=== PATIENT | female | born 1945 | race Caucasian/White ===

== ENCOUNTER 2016-08-27 19:36 | Inpatient (IN) | payer MEDICARE, OTHER ==
[~2016-08-27] VITALS: Ht 149.9 cm; Wt 82.3 kg
[~2016-08-27 19:36] MED LIST: ALBU8.5H3 INH; AMLO5TAB4 PO; ASPI81TA3 PO; ATOR10TA65 PO; CALC-277 PO; CHOL100062 PO; CYAN500T46 PO; DOCU250C58 PO; DULO60CA59 PO; ESOM40CA PO; FER325 PO; FLUT1AER IH; HYDR25TA6 PO; ISON300T72 PO; LEVO75TA5 PO; MONT10TA24 PO; PYRI100T59 PO; PYRI50TA14 PO; RIF120L PO; VALS160T20 PO; VIT1TABL46 PO
[2016-08-27] MEDS ORDERED: ACETAMINOPHEN 500 MG TAB PO STA (20:11)
[2016-08-27] MEDS ORDERED: CEFTRIAXONE 1 GM/50 ML (PMX) 50 ML IVPB STA (20:11)
[2016-08-27] MEDS ORDERED: AZITHROMYCIN 500MG/NS (PMX) 250 ML IV STA (20:11)
[2016-08-27] MEDS ORDERED: SOD CHLORIDE 0.9% 1,000 ML IV ONE (20:30)
[2016-08-27 20:33] LABS: BASOPHIL # 0.1 10^3/ul (0.0-0.1); BASOPHILS % 0.4 % (0.0-2.0); EOSINOPHILS # 0.1 10^3/ul (0.0-0.5); EOSINOPHILS % 0.7 % (0.0-7.0); HEMATOCRIT 41.9 % (37.0-47.0); HEMOGLOBIN 14.1 g/dl (12.0-16.0); LYMPHOCYTES # 0.8 10^3/ul (0.8-2.9); LYMPHOCYTES % 5.6 % (15.0-51.0); MEAN CORPUSCULAR HEMOGLOBIN 29.8 pg (29.0-33.0); MEAN CORPUSCULAR HGB CONC 33.7 g/dl (32.0-37.0); MEAN CORPUSCULAR VOLUME 88.5 fl (82.0-101.0); MEAN PLATELET VOLUME 8.7 fl (7.4-10.4); MONOCYTE # 0.7 10^3/ul (0.3-0.9); MONOCYTES % 5.1 % (0.0-11.0); NEUTROPHIL # 12.7 10^3/ul (1.6-7.5); NEUTROPHILS % 88.2 % (39.0-77.0); PLATELET COUNT 253 10^3/UL (140-440); RED BLOOD COUNT 4.74 10^6/ul (4.20-5.40); RED CELL DISTRIBUTION WIDTH 13.5 % (11.5-14.5); UNCORRECTED WBC 14.4 10^3/ul (4.8-10.8); WHITE BLOOD COUNT 14.4 10^3/ul (4.8-10.8)
--- NOTE | 2016-08-27 20:35 | RADRPT ---
PROCEDURE: XR Chest. CLINICAL INDICATION: Shortness of breath. TECHNIQUE: Single frontal view. COMPARISON: 09/30/2015. FINDINGS: The lungs are clear. The heart size is normal. There is no pleural effusion. There is no pneumothorax. IMPRESSION: 1. Normal chest radiograph. 2. No change from 09/30/2015. RPTAT: QQ .Kervin Phan MD, MD Date Time Electronically viewed and signed by .Kervin Phan MD, MD on 08/27/2016 20:35 .R/
[2016-08-27 20:36] LABS: CONDITION 1
[2016-08-27 20:41] LABS: ALBUMIN 4.2 g/dl (3.3-4.9)
[2016-08-27 20:42] LABS: POTASSIUM 4.5 mmol/L (3.5-5.1)
[2016-08-27 20:44] LABS: ALBUMIN/GLOBULIN RATIO 1.44; BILIRUBIN,INDIRECT 0.3 mg/dl (0-1.1); BILIRUBIN,TOTAL 0.3 mg/dl (0.2-1.3); CREATININE 0.83 mg/dl (0.44-1.00); TOTAL PROTEIN 7.1 g/dl (6.1-8.1)
[2016-08-27 20:45] LABS: CALCIUM 9.5 mg/dl (8.4-10.2)
[2016-08-27] MEDS ORDERED: SOD CHLORIDE 0.9% 100 ML ONE (20:52)
[2016-08-27] MEDS ORDERED: IOHEXOL 300MG/ML 150 ML BTL ONE (20:52)
[2016-08-27] MEDS ORDERED: SODIUM CHLORIDE 0.9% 1L BAG IV* STA (21:14)
[2016-08-27] MEDS ORDERED: DOCU250C58 PO (21:26)
[2016-08-27] MEDS ORDERED: LEVO75TA5 PO (21:27)
[2016-08-27] MEDS ORDERED: VALS160T20 PO (21:28)
[2016-08-27] MEDS ORDERED: ATOR10TA65 PO (21:28)
[2016-08-27] MEDS ORDERED: ESOM40CA PO (21:29)
[2016-08-27] MEDS ORDERED: ASPI-664 PO (21:29)
[2016-08-27] MEDS ORDERED: DULO60CA59 PO (21:30)
[2016-08-27] MEDS ORDERED: MONT10TA24 PO (21:30)
--- NOTE | 2016-08-27 21:30 | RADRPT ---
PROCEDURE: CT Abdomen and Pelvis with contrast. CLINICAL INDICATION: Abdomen and pelvis pain. TECHNIQUE: CT scan of the abdomen and pelvis with contrast was performed. The patient was scanned following the uncomplicated intravenous administration of 100 cc of Omnipaque-300. Coronal and sagi ttal reformatted images were obtained from the axial source images. Images were reviewed on a [employer] PACS workstation. Total exam DLP is 1153.54 mGy-cm. CTDIvol is 22.73 mGy. One or more o f the following dose reduction techniques were used: Automated exposure control, adjustment of the m A and/or kV according to patient size, use of iterative reconstruction technique. COMPARISON: CT scan of the abdomen and pelvis dated 09/16/2015. FINDINGS: The lung bases are normal. There is no pleural effusion. There is a moderate-sized hiatus hernia. Previously noted gastric band is no longer present. The liver is normal in size and attenuation. There is no focal hepatic lesion. The gallbladder is surgically absent with clips noted in the gallbladder bed. The bile ducts are no rmal. The spleen is normal in size. There is no focal splenic lesion. Both adrenals are normal with no enlargement or mass. The pancreas is unremarkable with no mass or evidence of pancreatitis. Both kidneys demonstrate normal contrast enhancement. There is no renal mass or hydronephrosis. The abdominal aorta is not dilated. There is calcification in the aorta consistent with atheroscler osis. There is no retroperitoneal lymphadenopathy or mass. There is no pelvic lymphadenopathy or mass. The bladder and distal ureters are normal. The periappendiceal region is unremarkable with no evidence of appendicitis. The bowel and mesentery are normal. There is no free fluid or free gas. There are degenerative changes of the spine. There is no fracture or lytic lesion. There is grade 1 anterolisthesis at L5-S1 and grade 1 retrolisthesis at L1-L2, unchanged. IMPRESSION: 1. Previously noted gastric band is no longer present. 2. Moderate sized hiatus hernia. 3. Status post cholecystectomy. 4. Atherosclerosis. 5. Degenerative changes of the spine. 6. Grade 1 anterolisthesis at L5-S1. 7. Grade 1 retrolisthesis at L1-L2. RPTAT: QQ .Kervin Phan MD, MD Date Time Electronically viewed and signed by .Kervin Phan MD, on 08/27/2016 21:29 .R/
[2016-08-27] MEDS ORDERED: NEBI5TAB9 PO (21:31)
[2016-08-27] MEDS ORDERED: HYD25 PO (21:31)
[2016-08-27] MEDS ORDERED: FLUT1BLS INHALATION (21:33)
[2016-08-27] MEDS ORDERED: ALBU8.5H3 INH (21:34)
[2016-08-27] MEDS ORDERED: ALBU90AE INHALATION (21:35)
[2016-08-27] MEDS ORDERED: RIFA300C3 PO (21:35)
[2016-08-27] MEDS ORDERED: ISON300T72 PO (21:36)
[2016-08-27] MEDS ORDERED: PYRI50TA14 PO (21:36)
[2016-08-27] MEDS ORDERED: FLUT1AER INHALATION (21:38)
[2016-08-27 21:42] LABS: ADD UMIC NO; URINE BILIRUBIN (Dip) NEGATIVE (NEGATIVE); URINE BLOOD (Dip) NEGATIVE (NEGATIVE); URINE COLOR LT. YELLOW (YELLOW); URINE GLUCOSE (Dip) NEGATIVE (NEGATIVE); URINE KETONES (Dip) NEGATIVE (NEGATIVE); URINE LEUKOCYTE ESTERASE (Dip) NEGATIVE (NEGATIVE); URINE NITRITE (Dip) NEGATIVE (NEGATIVE); URINE TOTAL PROTEIN (Dip) NEGATIVE (NEGATIVE); URINE UROBILINOGEN (Dip) 0.2 E.U./dL (0.1-1.0)
[2016-08-27 22:00] VITALS: TEMP 100.2
[2016-08-27] MEDS ORDERED: SOD CHLORIDE 0.9% 1,000 ML IV SCH (22:09)
--- NOTE | 2016-08-27 22:16 | ERA ---
ER Documentation Chief Complaint Date/Time DATE: 08/27/16 TIME: 22:12 Chief Complaint fever on and off antibiotics finished 2 days ago HPI This is a 70-year-old female who has had 10 days of cough and is just completed a 10 day course of antibiotics. Patient states that her cough is getting worse and she is coughing up green sputum and having fevers for 2 days up to 103. Temperature here is 101.2. She is having no vomiting or diarrhea but she is having some right lower quadrant pain today described as sharp and constant. No shortness of breath or increased work of breathing, no dysuria or hematuria ROS All systems reviewed and are negative except as per history of present illness. Medications Home Meds Reported Medications Fluticasone-Vilanterol (Breo Ellipta Inhaler) 100-25 Mcg/Actuation Aer.pow.ba, 1 PUFF INHALATION BID, #1 INHALER 08/27/16 Pyridoxine Hcl* (Pyridoxine Hcl*) 50 Mg Tablet, 50 MG PO DAILY, TAB 08/27/16 Isoniazid* (Isoniazid*) 300 Mg Tablet, 300 MG PO DAILY, TAB 08/27/16 Rifampin* (Rifampin*) 300 Mg Capsule, 300 MG PO BID, CAP 08/27/16 Albuterol Sulfate (Proair Respiclick) 90 Mcg Aer.pow.ba, 2 PUFFS INHALATION Q6 Y for PRN, #1 BOTTLE 08/27/16 Hydrochlorothiazide* (Hydrochlorothiazide*) 25 Mg Tab, 25 MG PO DAILY, #30 TAB 08/27/16 Nebivolol* (Bystolic*) 5 Mg Tab, 5 MG PO DAILY, #30 TAB 08/27/16 Montelukast Sodium* (Montelukast Sodium*) 10 Mg Tablet, 10 MG PO QHS, #30 TAB 08/27/16 Duloxetine Hcl* (Duloxetine Hcl*) 60 Mg Capsule.dr, 60 MG PO BID, #30 CAP 08/27/16 Aspirin* (Aspirin* EC) 81 Mg Tablet.dr, 81 MG PO DAILY, TAB 08/27/16 Esomeprazole Mag Trihydrate (Nexium) 40 Mg Capsule.dr, 40 MG PO DAILY, #30 CAP 08/27/16 Atorvastatin Calcium (Atorvastatin Calcium) 10 Mg Tablet, 10 MG PO QHS, #30 TAB 08/27/16 Valsartan* (Diovan*) 160 Mg Tablet, 160 MG PO DAILY, TAB 08/27/16 Levothyroxine Sodium* (Levothyroxine Sodium*) 75 Mcg Tablet, 75 MCG PO BEFORE BREAKFAST, #30 TAB 08/27/16 Docusate Sodium* (Colace*) 250 Mg Capsule, 250 MG PO DAILY, #30 CAP 08/27/16 Discontinued Reported Medications Albuterol Sulfate* (Proair HFA*) 8.5 Gm Hfa.aer.ad, 2 PUFF INH Q6H Y for WHEEZING AND SOB, #1 INHALER 08/27/16 Fluticasone/Vilanterol (Breo Ellipta 200-25 Mcg INH) 1 Each Blst.w.dev, 1 PUFF INHALATION BID, #1 INHALER 08/27/16 Cyanocobalamin* (Vitamin B12*) 500 Mcg Tab, 500 MCG PO DAILY, TAB 04/25/16 Pyridoxine Hcl* (Vitamin B-6*) 100 Mg Tablet, 100 MG PO DAILY, TAB 04/25/16 Vitamin B Complex* (Vitamin B Complex*) 1 Each Tablet, 1 TAB PO DAILY, TAB 04/25/16 Cholecalciferol* (Vitamin D3*) 1,000 Unit Tablet, 2000 UNIT PO DAILY, TAB 04/25/16 Pyridoxine Hcl* (Pyridoxine Hcl*) 50 Mg Tablet, 50 MG PO DAILY, TAB 04/25/16 Duloxetine Hcl* (Duloxetine Hcl*) 60 Mg Capsule.dr, 60 MG PO BID, #30 CAP 04/25/16 Levothyroxine Sodium* (Levothyroxine Sodium*) 75 Mcg Tablet, 75 MCG PO BEFORE BREAKFAST, #30 TAB 04/25/16 Amlodipine Besylate* (Norvasc*) 5 Mg Tablet, 5 MG PO DAILY, TAB 09/12/15 Aspirin* (Aspirin* Chew) 81 Mg Tab.chew, 81 MG PO DAILY, TAB.CHEW 09/12/15 Docusate Sodium* (Colace*) 250 Mg Capsule, 250 MG PO BID Y for COUGH, #60 CAP 09/12/15 Atorvastatin Calcium (Atorvastatin Calcium) 10 Mg Tablet, 10 MG PO QHS, #30 TAB 09/12/15 Fluticasone-Vilanterol (Breo Ellipta Inhaler) 100-25 Mcg/Actuation Aer.pow.ba, 1 PUFF IH DAILY, EA 06/17/14 Albuterol Sulfate* (Proair HFA*) 8.5 Gm Hfa.aer.ad, 1-2 PUFF INH Q4-6HOURS, INH 06/17/14 Montelukast Sodium* (Montelukast Sodium*) 10 Mg Tablet, 10 MG PO HS, TAB 06/17/14 Esomeprazole Mag Trihydrate (Nexium) 40 Mg Capsule.dr, 40 MG PO DAILY, CAP 06/17/14 Valsartan* (Diovan*) 160 Mg Tablet, 160 MG PO DAILY, TAB 06/17/14 Calcium Carbonate/Vitamin D3 (OYSTER SHELL 500 MG + VIT D TB) 1 Each Tablet, 1 EACH PO DAILY 09/04/13 Hydrochlorothiazide (Hydrochlorothiazide) 25 Mg Tablet, 25 MG PO DAILY 04/17/11 Discontinued Scripts Ferrous Sulfate* (Ferrous Sulfate*) 325 Mg Tabec, 325 MG PO TID, #60 TAB Prov:IJEOMA SENA MD 04/25/16 Rifampin* (Rifampin* Pediatric IV Syringe) 300 Mg Cap, 600 MG PO DAILY, #30 Prov:RAMANDEEP GUEVARA 10/04/15 Isoniazid* (Isoniazid*) 300 Mg Tab, 300 MG PO DAILY, #30 TAB Prov:RAMANDEEP GUEVARA 10/04/15 Allergies Allergies: Coded Allergies: No Known Allergy (Unverified , 08/27/16) PMhx/Soc History of Surgery: Yes (fixed hernia, removal of gastric lap band, cholectomy ) Anesthesia Reaction: No Hx Neurological Disorder: No Hx Respiratory Disorders: Yes (Asthma, Bronchitis) Hx Cardiac Disorders: Yes (HTN) Hx Psychiatric Problems: No Hx Alcohol Use: No Hx Substance Use: No Hx Tobacco Use: No Smoking Status: Never smoker FmHx Family History: No coronary disease Physical Exam Vitals Vital Signs Date Time Temp Pulse Resp B/P Pulse Ox O2 Delivery O2 Flow Rate FiO2 08/27/16 22:00 100.2 08/27/16 19:40 101.5 116 20 187/95 93 Physical Exam Const: Well-developed, well-nourished Head: Atraumatic, normocephalic Eyes: Normal Conjunctiva, PERRLA, EOMI, normal sclera, no nystagmus ENT: Normal External Ears, Nose and Mouth, moist mucus membranes. Neck: Full range of motion. No meningismus, no lymphadenopathy. Resp: Clear to auscultation bilaterally, no wheezing, rhonchi, rales Cardio: Regular rate and rhythm, no murmurs, S1 S2 present Abd: Soft, mild right lower quadrant tenderness, non distended. Normal bowel sounds, no guarding or rebound, no pulsitile abdominal masses or bruits Skin: No petechiae or rashes, no ecchymosis , no maculopapular rash Back: No midline or flank tenderness Ext: No cyanosis, or edema, FROM x 4, normal inspection, neurovascularly intact x 4 Neur: Awake and alert, STR 5/5 x 4, sensation intact x 4, no focal findings, cerebellum intact Psych: Normal Mood and Affect Result Diagram: 08/27/16201808/27/162018 Results 24 hrs Laboratory Tests Test 08/27/16 20:19 08/27/16 21:00 Alanine Aminotransferase (ALT/SGPT) 36IU/L Albumin 4.2g/dl Albumin/Globulin Ratio 1.44 Alkaline Phosphatase 115IU/L Anion Gap 17 Aspartate Amino Transf (AST/SGOT) 37IU/L Basophils # 0.110^3/ul Basophils % 0.4% Blood Urea Nitrogen 24mg/dl Calcium Level 9.5mg/dl Carbon Dioxide Level 27mmol/L Chloride Level 97mmol/L Creatinine 0.83mg/dl Direct Bilirubin 0.00mg/dl Eosinophils # 0.110^3/ul Eosinophils % 0.7% Globulin 2.90g/dl Glucose Level 130mg/dl Hematocrit 41.9% Hemoglobin 14.1g/dl Indirect Bilirubin 0.3mg/dl Lactic Acid Level 2.2mmol/L Lymphocytes # 0.810^3/ul Lymphocytes % 5.6% Mean Corpuscular Hemoglobin 29.8pg Mean Corpuscular Hemoglobin Concent 33.7g/dl Mean Corpuscular Volume 88.5fl Mean Platelet Volume 8.7fl Monocytes # 0.710^3/ul Monocytes % 5.1% Neutrophils # 12.710^3/ul Neutrophils % 88.2% Nucleated Red Blood Cells # 0.010^3/ul Nucleated Red Blood Cells % 0.0/100WBC Platelet Count 82878^3/UL Potassium Level 4.5mmol/L Red Blood Count 4.7410^6/ul Red Cell Distribution Width 13.5% Sodium Level 136mmol/L Total Bilirubin 0.3mg/dl Total Protein 7.1g/dl White Blood Count 14.410^3/ul Urine Bilirubin NEGATIVE Urine Clarity CLEAR Urine Color LT. YELLOW Urine Glucose NEGATIVE% Urine Hemoglobin NEGATIVE Urine Ketones NEGATIVE Urine Leukocyte Esterase NEGATIVE Urine Nitrite NEGATIVE Urine Specific [place] 1.010 Urine Total Protein NEGATIVE Urine Urobilinogen 0.2 E.U./dL Urine pH 6.0 Current Medications Medications (Trade) Dose Ordered Sig/Lois Route PRN Reason Start Time Stop Time Status Last Admin Dose Admin Ceftriaxone Sodium 50 ml @ 100 mls/hr ONCE STAT IVPB 08/27/16 20:11 08/27/16 20:40 DC 08/27/16 20:58 Azithromycin 250 ml @ 250 mls/hr ONCE STAT IV 08/27/16 20:11 08/27/16 21:10 DC 08/27/16 21:57 Sodium Chloride (NS) 1,000 ml @ 1,000 mls/hr Q1H ONCE IV 08/27/16 20:30 08/27/16 21:29 DC 08/27/16 20:57 Acetaminophen (Tylenol Tab) 1,000 mg ONCE STAT PO 08/27/16 20:11 08/27/16 20:14 DC 08/27/16 20:57 IV Flush 10 ml 10 ml STK-MED ONCE .ROUTE 08/27/16 20:52 08/27/16 20:53 DC 08/27/16 21:07 Sodium Chloride (NS) 100 ml @ ud STK-MED ONCE .ROUTE 08/27/16 20:52 08/27/16 20:53 DC 08/27/16 21:07 Iohexol (Omnipaque 300mg/ ml) 150 ml STK-MED ONCE .ROUTE 08/27/16 20:52 08/27/16 20:53 DC 08/27/16 21:07 Sodium Chloride (NS) 2,590 ml BOLUS OVER 2 HOURS STAT IV* 08/27/16 21:14 08/27/16 21:24 DC Procedures/MDM PROCEDURE: CT Abdomen and Pelvis with contrast. CLINICAL INDICATION: Abdomen and pelvis pain. TECHNIQUE: CT scan of the abdomen and pelvis with contrast was performed. The patient was scanned following the uncomplicated intravenous administration of 100 cc of Omnipaque-300. Coronal and sagittal reformatted images were obtained from the axial source images. Images were reviewed on a high-resolution PACS workstation. Total exam DLP is 1153.54 mGy-cm. CTDIvol is 22.73 mGy. One or more of the following dose reduction techniques were used: Automated exposure control, adjustment of the mA and/or kV according to patient size, use of iterative reconstruction technique. COMPARISON: CT scan of the abdomen and pelvis dated 09/16/2015. FINDINGS: The lung bases are normal. There is no pleural effusion. There is a moderate- sized hiatus hernia. Previously noted gastric band is no longer present. The liver is normal in size and attenuation. There is no focal hepatic lesion. The gallbladder is surgically absent with clips noted in the gallbladder bed. The bile ducts are normal. The spleen is normal in size. There is no focal splenic lesion. Both adrenals are normal with no enlargement or mass. The pancreas is unremarkable with no mass or evidence of pancreatitis. Both kidneys demonstrate normal contrast enhancement. There is no renal mass or hydronephrosis. The abdominal aorta is not dilated. There is calcification in the aorta consistent with atherosclerosis. There is no retroperitoneal lymphadenopathy or mass. There is no pelvic lymphadenopathy or mass. The bladder and distal ureters are normal. The periappendiceal region is unremarkable with no evidence of appendicitis. The bowel and mesentery are normal. There is no free fluid or free gas. There are degenerative changes of the spine. There is no fracture or lytic lesion. There is grade 1 anterolisthesis at L5-S1 and grade 1 retrolisthesis at L1-L2, unchanged. IMPRESSION: 1. Previously noted gastric band is no longer present. 2. Moderate sized hiatus hernia. 3. Status post cholecystectomy. 4. Atherosclerosis. 5. Degenerative changes of the spine. 6. Grade 1 anterolisthesis at L5-S1. 7. Grade 1 retrolisthesis at L1-L2. RPTAT: QQ .Kervin Phan MD, Date Time Electronically viewed and signed by .Kervin Phan MD, on 08/27/2016 21:29 .R/ CC: JAGRUTI DENNIS DO PROCEDURE: XR Chest. CLINICAL INDICATION: Shortness of breath. TECHNIQUE: Single frontal view. COMPARISON: 09/30/2015. FINDINGS: The lungs are clear. The heart size is normal. There is no pleural effusion. There is no pneumothorax. IMPRESSION: 1. Normal chest radiograph. 2. No change from 09/30/2015. RPTAT: QQ .Kervin Phan MD, MD Date Time Electronically viewed and signed by .Kervin Phan MD, MD on 08/27/2016 20:35 .R/ CC: JAGRUTI DENNIS DO Patient has a slightly elevated lactate at 2.2 she was given antibiotics and IV fluid resuscitation per sepsis protocol, I however do not feel she is grossly septic Patient's infectious symptoms have not stabilized and the patient is at risk of rapid decompensation. The patient will be admitted for careful hydration, antibiotic therapy, and infectious source control. Severe Sepsis Assessment: Infectious Source: Bronchitis End organ damage indicated by: [Lactate > 2.0 mmol/L Hypotension( SBP < 90 or >40 mmHG drop or MAP < 65) Acute Resp Failure (sat < 92% w/o oxygen) Waiter/Waitress Head > 2.0 INR > 1.5 Plt < 100 Bili > 2] Severe Sepsis Managment: Blood Cultures X 2 before broad spectrum antibiotics initiated within 3 hours of recognition. 30 ml/kg NS bolus Completed Initial Lactate: [2.2 Repeat Lactate [pending] Critical Care: Time: [30 minutes Treatments/Evaluations: Emergent fluid management, while maintaining close respiratory support. Immediate broad spectrum antibiotic therapy. Simultaneous assessment for possible sources in order to direct therapy. Consideration for invasive and chemical support to prevent respiratory or cardiac collapse. Departure Diagnosis: Primary Impression: Sepsis Qualified Code: A41.9 - Sepsis, due to unspecified organism Additional Impression: Bronchitis Condition: Stable JAGRUTI DENNIS DO Aug 27, 2016 22:16
[2016-08-27] MEDS ORDERED: ONDANSETRON 4 MG INJ IV PRN (22:30)
[2016-08-27] MEDS ORDERED: ACETAMINOPHEN 325 MG TAB PO PRN (22:30)
[2016-08-27 23:30] VITALS: Ht 149.9 cm; Wt 82.3 kg
[2016-08-27 23:45] VITALS: BP 161/83; PULSE 97; RESP 18
[2016-08-28] MEDS: DULOXETINE 30 MG CAP DR PO SCH ×3 (00:30→21:12)
[2016-08-28] MEDS ORDERED: hydrALAzine 20 MG INJ IV PRN (00:30)
[2016-08-28] MEDS ORDERED: NON-FORMULARY/PATIENT OWN MED (Albuterol Sulfate (Proair Respiclick) 2 PUFFS) INHALATION PRN (00:30)
[2016-08-28] MEDS: VALSARTAN 160 MG TAB PO SCH ×2 (01:00→08:51)
[2016-08-28] MEDS ORDERED: ALBUTEROL HFA 8 GM INHALER INH PRN (01:00)
[2016-08-28] MEDS: NEBIVOLOL 5 MG TAB PO SCH ×2 (01:00→08:50)
[2016-08-28 01:26] VITALS: BP 152/83; PULSE 83; RESP 20
[2016-08-28 05:21] LABS: BASOPHILS % 0.2 % (0.0-2.0); EOSINOPHILS # 0.1 10^3/ul (0.0-0.5); EOSINOPHILS % 0.5 % (0.0-7.0); HEMATOCRIT 38.4 % (37.0-47.0); LYMPHOCYTES # 0.8 10^3/ul (0.8-2.9); MEAN CORPUSCULAR HGB CONC 33.7 g/dl (32.0-37.0); MEAN PLATELET VOLUME 8.6 fl (7.4-10.4); MONOCYTE # 1.1 10^3/ul (0.3-0.9); MONOCYTES % 7.7 % (0.0-11.0); NEUTROPHIL # 11.7 10^3/ul (1.6-7.5); NEUTROPHILS % 85.6 % (39.0-77.0); PLATELET COUNT 223 10^3/UL (140-440); RED BLOOD COUNT 4.32 10^6/ul (4.20-5.40); RED CELL DISTRIBUTION WIDTH 13.8 % (11.5-14.5); UNCORRECTED WBC 13.7 10^3/ul (4.8-10.8); WHITE BLOOD COUNT 13.7 10^3/ul (4.8-10.8)
[2016-08-28 05:28] LABS: CONDITION 1
[2016-08-28 05:35] LABS: POTASSIUM 3.9 mmol/L (3.5-5.1)
[2016-08-28 05:37] LABS: CREATININE 0.76 mg/dl (0.44-1.00)
[2016-08-28 05:38] LABS: CALCIUM 8.5 mg/dl (8.4-10.2)
[2016-08-28 05:40] LABS: MAGNESIUM 1.5 mg/dl (1.7-2.5)
[2016-08-28] MEDS ORDERED: MAGNESIUM SULFATE 4 GM/100 ML 100 ML IVPB ONE (06:00)
[2016-08-28] MEDS ORDERED: LEVOTHYROXINE 75 MCG TAB PO SCH (06:00)
[2016-08-28] MEDS: PANTOPRAZOLE (EC) 40 MG TAB PO SCH (07:07)
[2016-08-28 08:15] VITALS: BP 187/89; PULSE 82; RESP 16
[2016-08-28] MEDS: METHYLPREDNISOLONE 125 MG INJ IV SCH ×3 (08:50→21:12)
[2016-08-28] MEDS: ASPIRIN (EC) 81 MG TAB PO SCH (08:51)
[2016-08-28] MEDS: HYDROCHLOROTHIAZIDE 25 MG TAB PO SCH (08:51)
[2016-08-28] MEDS: RIFAMPIN 300 MG CAP PO SCH ×2 (08:51→21:13)
[2016-08-28] MEDS: DOCUSATE SODIUM 250 MG CAP PO SCH (08:51)
[2016-08-28] MEDS: ISONIAZID 300 MG TAB PO SCH (08:51)
[2016-08-28] MEDS: PYRIDOXINE 50 MG TAB PO SCH (08:51)
[2016-08-28] MEDS ORDERED: NON-FORMULARY/PATIENT OWN MED (Esomeprazole Mag Trihydrate (Nexium) 40 MG) PO SCH (09:00)
--- NOTE | 2016-08-28 09:43 | HP ---
DATE OF ADMISSION: 08/28/2016 CHIEF COMPLAINT: Shortness of breath and cough. HISTORY OF PRESENT ILLNESS: The patient is a 70-year-old female with a history of asthma, hypertens ion, dyslipidemia, obesity and Mycobacterium infection of the liver. The patient presents with shor tness of breath and persistent cough for the past several days now. She has no other complaints. T he patient was last hospitalized here in September 2015 for issues related to a slipped lap band. At that time, had undergone lap band removal and hernia repair by Dr. Thompson. At that time, patient did have a liver biopsy and biopsy did come back positive for melanoma with isolated AFB, compatible with mycobacterial infection. The patient has no other complaints at this time. PAST MEDICAL HISTORY: Asthma, hypothyroidism, dyslipidemia, hypertension, obesity, history of lapar oscopic band removal and mycobacterial infection of the liver on medicine, knee surgery and hernia r epair. Of note, the patient had hernia repair at the same time of the liver biopsy. HOME MEDICATIONS: 1. Albuterol. 2. Aspirin. 3. Atorvastatin. 4. Colace. 5. Cymbalta. 6. Nexium. 7. Steroid inhaler. 8. Hydrochlorothiazide. 9. Isoniazid. 10. Montelukast. 11. Bystolic. 12. Pyridoxine. 13. Rifampin. 14. Will start on Diovan as well as Synthroid ALLERGIES: NO KNOWN DRUG ALLERGIES. FAMILY HISTORY: Mother with cancer. SOCIAL HISTORY: Denies alcohol, tobacco, or drug abuse. REVIEW OF SYSTEMS: A 12-point review of systems negative except that discussed in HPI. PHYSICAL EXAMINATION: VITAL SIGNS: Temp current is 99.3, T-max 101.5, pulse 83, respiratory rate is 20, blood pressure 15 2/83, saturation 94% on room air. GENERAL: No acute distress, alert and oriented. HEENT: Normocephalic, atraumatic. Pupils equal, round, and reactive to light. LUNGS: Clear to auscultation. CARDIOVASCULAR: Regular rate and rhythm. ABDOMEN: Nondistended, nontender, soft. EXTREMITIES: No clubbing, cyanosis, or edema. LABORATORIES: White count 16.7, hemoglobin 16.0. Chemistry within normal limits except for magnesi um 1.5. DIAGNOSTICS: Chest x-ray shows normal chest. No change from 09/30/2015. Abdominal pelvis CT shows a previously noted gastric banding is no longer present. Moderate size hiatus hernia, status post cholecystectomy, atherosclerosis, degenerative changes of the spine. ASSESSMENT AND PLAN: 1. Asthma exacerbation and patient has multiple episodes of asthma exacerbations according to lonny ortez. The patient did have slightly elevated lactic acid at 2.2 on admission as well as a fever and l eukocytosis. We will treat with antibiotics. We will give oxygen via nasal cannula, pulse continue patient's home breathing treatments. 2. Sepsis secondary to acute upper respiratory infection. The patient does meet sepsis criteria wi th leukocytosis, fever and tachycardia. Once again, we will treat with antibiotics. 3. History of mycobacterial infection of the liver. Continue patient's home antibiotics. 4. Hypertension. Continue home Bystolic and Diovan. 5. Depression. Continue home Cymbalta. 6. Prophylaxis. SCDs. Dictated By: LUDIVINA PANDYA MD BS/NTS Conf#: [id number] DID#: [id number]
[2016-08-28 10:00] VITALS: BP 165/77; PULSE 80
[2016-08-28] MEDS ORDERED: ALBUTEROL/IPRATROPIUM (NEB) 3 ML AMP HHN PRN (13:00)
[2016-08-28] MEDS: ALBUTEROL/IPRATROPIUM (NEB) 3 ML AMP HHN SCH ×3 (13:40→20:12)
[2016-08-28] MEDS: GUAIFENESIN 20 MG/ML 5ML CUP PO PRN ×2 (13:55→21:23)
[2016-08-28] MEDS: AMLODIPINE 5 MG TAB PO SCH ×2 (13:55→21:15)
[2016-08-28 14:00] VITALS: BP 148/77; PULSE 77
[2016-08-28] MEDS ORDERED: MAGNESIUM SULFATE 2 GM/50 ML 50 ML IVPB ONE (14:00)
[2016-08-28 20:31] VITALS: BP 110/63; RESP 20
[2016-08-28] MEDS: AZITHROMYCIN 500MG/NS (PMX) 250 ML IVPB SCH (21:12)
[2016-08-28] MEDS: MONTELUKAST 10 MG TAB PO SCH (21:13)
[2016-08-28] MEDS: ATORVASTATIN 10 MG TAB PO SCH (21:13)
[2016-08-28] MEDS: CEFTRIAXONE 1 GM/50 ML (PMX) 50 ML IVPB SCH (21:34)
[2016-08-29] MEDS: ALBUTEROL/IPRATROPIUM (NEB) 3 ML AMP HHN SCH ×6 (00:52→20:42)
[2016-08-29 05:47] LABS: HEMATOCRIT 37.6 % (37.0-47.0); HEMOGLOBIN 12.6 g/dl (12.0-16.0); LYMPHOCYTES # 0.7 10^3/ul (0.8-2.9); LYMPHOCYTES % 6.8 % (15.0-51.0); MEAN CORPUSCULAR HGB CONC 33.5 g/dl (32.0-37.0); MEAN CORPUSCULAR VOLUME 89.7 fl (82.0-101.0); MEAN PLATELET VOLUME 8.9 fl (7.4-10.4); MONOCYTE # 0.4 10^3/ul (0.3-0.9); MONOCYTES % 3.6 % (0.0-11.0); NEUTROPHIL # 9.5 10^3/ul (1.6-7.5); NEUTROPHILS % 89.6 % (39.0-77.0); PLATELET COUNT 246 10^3/UL (140-440); POTASSIUM 4.2 mmol/L (3.5-5.1); RED BLOOD COUNT 4.19 10^6/ul (4.20-5.40); RED CELL DISTRIBUTION WIDTH 13.9 % (11.5-14.5); UNCORRECTED WBC 10.6 10^3/ul (4.8-10.8); WHITE BLOOD COUNT 10.6 10^3/ul (4.8-10.8)
[2016-08-29 05:49] LABS: CREATININE 0.72 mg/dl (0.44-1.00)
[2016-08-29 06:11] LABS: CONDITION 1
[2016-08-29] MEDS: PANTOPRAZOLE (EC) 40 MG TAB PO SCH (06:19)
[2016-08-29] MEDS: METHYLPREDNISOLONE 125 MG INJ IV SCH ×3 (06:19→20:24)
[2016-08-29] MEDS: GUAIFENESIN 20 MG/ML 5ML CUP PO PRN ×2 (06:21→14:46)
[2016-08-29] MEDS: LEVOTHYROXINE 75 MCG TAB PO SCH (06:21)
[2016-08-29 07:49] VITALS: BP 140/65; RESP 18
[2016-08-29] MEDS: NEBIVOLOL 5 MG TAB PO SCH (08:36)
[2016-08-29] MEDS: DOCUSATE SODIUM 250 MG CAP PO SCH (08:36)
[2016-08-29] MEDS: DULOXETINE 30 MG CAP DR PO SCH ×2 (08:36→20:25)
[2016-08-29] MEDS: RIFAMPIN 300 MG CAP PO SCH ×2 (08:37→20:25)
[2016-08-29] MEDS: HYDROCHLOROTHIAZIDE 25 MG TAB PO SCH (08:37)
[2016-08-29] MEDS: ISONIAZID 300 MG TAB PO SCH (08:37)
[2016-08-29] MEDS: PYRIDOXINE 50 MG TAB PO SCH (08:37)
[2016-08-29] MEDS: ASPIRIN (EC) 81 MG TAB PO SCH (08:37)
[2016-08-29] MEDS: VALSARTAN 160 MG TAB PO SCH (08:37)
[2016-08-29] MEDS: AMLODIPINE 5 MG TAB PO SCH ×2 (10:42→20:25)
[2016-08-29 13:27] VITALS: BP 137/82; PULSE 69; RESP 16
[2016-08-29] MEDS ORDERED: FLUT1AER INHALATION (14:12)
[2016-08-29] MEDS ORDERED: ALBU90AE INHALATION (14:12)
[2016-08-29] MEDS ORDERED: AZIT500T2 PO (14:12)
[2016-08-29] MEDS ORDERED: PRED10TA PO (14:12)
[2016-08-29] MEDS ORDERED: AMLO-145 PO (14:12)
--- NOTE | 2016-08-29 14:16 | PDOCDIS ---
Discharge Instructions DIAGNOSIS Discharge Diagnosis: 1. Asthma exacerbation 2. Sepsis suspect secondary to bronchitis CONDITION Patient Condition: Stable HOME CARE INSTRUCTIONS: Diet Instructions: Low Fat /Cholesterol FOLLOW UP/APPOINTMENTS Appointments 1. Follow up with your primary care provider in one week OTHER ORDERS: Other Orders: 1. Call your primary care provider if you have worsening shortness of breath DAVDI KHAN Aug 29, 2016 14:16
[2016-08-29] MEDS: SALMETEROL/FLUTICASONE 250/50 INHA INH SCH ×2 (14:46→20:26)
[2016-08-29] MEDS ORDERED: AL HYDROX/MG HYDROX/SIMETH 30 ML CUP PO PRN (15:00)
--- NOTE | 2016-08-29 15:46 | PN ---
Date/Time of Note Date/Time of Note DATE: 08/29/16 TIME: 15:43 Assessment/Plan VTE Prophylaxis VTE Prophylaxis Intervention: SCD's Lines/Catheters [facility] Urinary Cath still in place: No Assessment/Plan Chief Complaint/Hosp Course Assessment and plan 1. Asthma exacerbation. Continue on steroid treatment. Continue bronchodilators. Titrate off O2 as tolerated. 2. Sepsis secondary to suspect bronchitis. Continue antibiotic for now. We'll provide with antitussives for cough 3. History of mycobacterial infection of the liver. We'll continue patient on her Rifampin and Isoniazid. 4. Essential hypertension. Continue on antihypertensives and adjust as needed 5. History of major depression. Continue on Cymbalta DVT prophylaxis: SCDs and Disposition and plan: Continue on bronchodilators and steroid treatment. Monitor for clinical improvement of respiratory status. Discharge when medically stable Discussed health care with Dr. [place] Problems: Subjective 24 Hr Interval Summary Free Text/Dictation Still with reports of shortness of breath and cough Exam/Review of Systems Vital Signs Vitals Vital Signs Date Time Temp Pulse Resp B/P Pulse Ox O2 Delivery O2 Flow Rate FiO2 08/29/16 14:00 72 19 95 Nasal Cannula 2.0 08/29/16 13:27 98.9 137/82 Intake and Output 08/28/16 08/28/16 08/29/16 15:00 23:00 07:00 Intake Total 100 ml 840 ml 860 ml Balance 100 ml 840 ml 860 ml Exam General: No acute signs or symptoms of distress Eyes: pupils equal round, Anicteric sclera Neck: Supple nontender, no JVD Cardiac: S1, S2 auscultated, regular rhythm and rate Pulmonary: coarse lung sounds with some wheezing bilaterally GI: Abdomen soft nontender nondistended, bowel sounds active Extremities: No edema bilateral lower extremities Skin: Clean dry and intact Neurologic: Alert to person place and time and situation Results Result Diagram: 08/29/16 0444 08/29/164 Results 24 hrs Laboratory Tests Test 08/29/16 04:44 Anion Gap 12 Basophils # 0.0 Basophils % 0.0 Blood Urea Nitrogen 24 H Calcium Level 8.0 L Carbon Dioxide Level 30 Chloride Level 102 Creatinine 0.72 Eosinophils # 0.0 Eosinophils % 0.0 Glucose Level 146 Hematocrit 37.6 Hemoglobin 12.6 Lymphocytes # 0.7 L Lymphocytes % 6.8 L Mean Corpuscular Hemoglobin 30.0 Mean Corpuscular Hemoglobin Concent 33.5 Mean Corpuscular Volume 89.7 Mean Platelet Volume 8.9 Monocytes # 0.4 Monocytes % 3.6 Neutrophils # 9.5 H Neutrophils % 89.6 H Nucleated Red Blood Cells # 0.0 Nucleated Red Blood Cells % 0.0 Platelet Count 246 Potassium Level 4.2 Red Blood Count 4.19 L Red Cell Distribution Width 13.9 Sodium Level 140 White Blood Count 10.6 # Medications Medications Current Medications Aspirin (Halfprin) 81 mg DAILY PO Last administered on 08/29/16 08:37; Admin Dose 81 MG; Start 08/28/16 at 09:00 Atorvastatin Calcium (Lipitor) 10 mg QHS PO Last administered on 08/28/16 21:13 ; Admin Dose 10 MG; Start 08/28/16 at 21:00 Docusate Sodium (Colace) 250 mg DAILY PO Last administered on 08/29/16 08:36; Admin Dose 250 MG; Start 08/28/16 at 09:00 Duloxetine HCl (Cymbalta) 60 mg BID PO Last administered on 08/29/16 08:36; Admin Dose 60 MG; Start 08/28/16 at 00:30 Hydrochlorothiazide (Hydrochlorothiazide) 25 mg DAILY PO Last administered on 08:37; Admin Dose 25 MG; Start 08/28/16 at 09:00 Isoniazid (Isoniazid) 300 mg DAILY PO Last administered on 08/29/16 08:37; Admin Dose 300 MG; Start 08/28/16 at 09:00 Montelukast Sodium (Singulair) 10 mg QHS PO Last administered on 08/28/16 21:13 ; Admin Dose 10 MG; Start 08/28/16 at 21:00 Miscellaneous Medication (Bystolic) 5 mg DAILY PO Last administered on 08:36; Admin Dose 5 MG; Start 08/28/16 at 01:00 Pyridoxine HCl (Vitamin B6) 50 mg DAILY PO Last administered on 08/29/16 08:37 ; Admin Dose 50 MG; Start 08/28/16 at 09:00 Rifampin (Rifampin) 300 mg BID PO Last administered on 08/29/16 08:37; Admin Dose 300 MG; Start 08/28/16 at 09:00 Valsartan (Diovan) 160 mg DAILY PO Last administered on 08/29/16 08:37; Admin Dose 160 MG; Start 08/28/16 at 01:00 Pantoprazole 40 mg 40 mg DAILY@06 PO Last administered on 08/29/16 06:19; Admin Dose 40 MG; Start 08/28/16 at 06:00 Ceftriaxone Sodium 50 ml @ 100 mls/hr Q24H IVPB Last administered on 08/28/16 21:34; Admin Dose 100 MLS/HR; Start 08/28/16 at 21:00 Azithromycin (Zithromax 500mg/ NS (Pmx)) 250 ml @ 250 mls/hr Q24H IVPB Last administered on 08/28/16 21:12; Admin Dose 250 MLS/HR; Start 08/28/16 at 20:00 Hydralazine HCl (Apresoline) 10 mg Q4H PRN IV ELEVATED SYSTOLIC BP; Start at 00:30 Salmeterol Xinafoate/ Fluticasone (Advair 250/50 Diskus) 1 inh BID INH Last administered on 08/29/16 14:46; Admin Dose 1 INH; Start 08/29/16 at 14:30 Methylprednisolone Sodium Succinate (Solu-Medrol) 60 mg Q8 IV Last administered on 08/29/16 14:46; Admin Dose 60 MG; Start 08/28/16 at 07:30 Amlodipine Besylate (Norvasc) 5 mg BID PO Last administered on 08/29/16 10:42; Admin Dose 5 MG; Start 08/28/16 at 12:30 Guaifenesin (Robitussin Liquid Cup) 200 mg Q4H PRN PO cough Last administered on 08/29/16 14:46; Admin Dose 200 MG; Start 08/28/16 at 13:00 Al Hydrox/Mg Hydrox/Simethicone (Mag-Al Plus) 30 ml Q4H PRN PO GASTROINTESTINAL UPSET; Start 08/29/16 at 15:00 DAVID KHAN Aug 29, 2016 15:46
[2016-08-29 19:52] VITALS: BP 141/77; RESP 18
[2016-08-29] MEDS: AZITHROMYCIN 500MG/NS (PMX) 250 ML IVPB SCH (20:24)
[2016-08-29] MEDS: ATORVASTATIN 10 MG TAB PO SCH (20:25)
[2016-08-29] MEDS: MONTELUKAST 10 MG TAB PO SCH (20:25)
[2016-08-29] MEDS: CEFTRIAXONE 1 GM/50 ML (PMX) 50 ML IVPB SCH (22:38)
[2016-08-30] MEDS: ALBUTEROL/IPRATROPIUM (NEB) 3 ML AMP HHN SCH ×4 (02:32→13:00)
[2016-08-30] MEDS: GUAIFENESIN 20 MG/ML 5ML CUP PO PRN ×2 (02:55→11:03)
[2016-08-30 05:48] LABS: BASOPHILS % 0.1 % (0.0-2.0); HEMATOCRIT 38.6 % (37.0-47.0); HEMOGLOBIN 12.8 g/dl (12.0-16.0); LYMPHOCYTES # 1.6 10^3/ul (0.8-2.9); LYMPHOCYTES % 14.3 % (15.0-51.0); MEAN CORPUSCULAR HEMOGLOBIN 29.9 pg (29.0-33.0); MEAN CORPUSCULAR HGB CONC 33.1 g/dl (32.0-37.0); MEAN CORPUSCULAR VOLUME 90.2 fl (82.0-101.0); MEAN PLATELET VOLUME 8.9 fl (7.4-10.4); MONOCYTE # 0.8 10^3/ul (0.3-0.9); MONOCYTES % 7.1 % (0.0-11.0); NEUTROPHIL # 8.7 10^3/ul (1.6-7.5); NEUTROPHILS % 78.5 % (39.0-77.0); PLATELET COUNT 270 10^3/UL (140-440); RED BLOOD COUNT 4.27 10^6/ul (4.20-5.40); RED CELL DISTRIBUTION WIDTH 13.6 % (11.5-14.5); UNCORRECTED WBC 11.1 10^3/ul (4.8-10.8); WHITE BLOOD COUNT 11.1 10^3/ul (4.8-10.8)
[2016-08-30] MEDS: PANTOPRAZOLE (EC) 40 MG TAB PO SCH (05:56)
[2016-08-30] MEDS: METHYLPREDNISOLONE 125 MG INJ IV SCH (05:56)
[2016-08-30] MEDS: LEVOTHYROXINE 75 MCG TAB PO SCH (05:56)
[2016-08-30 05:57] LABS: CONDITION 1
[2016-08-30 06:04] LABS: POTASSIUM 4.1 mmol/L (3.5-5.1)
[2016-08-30 06:06] LABS: CREATININE 0.66 mg/dl (0.44-1.00)
[2016-08-30 06:07] LABS: CALCIUM 8.5 mg/dl (8.4-10.2)
[2016-08-30 07:34] VITALS: BP 143/67; RESP 20
[2016-08-30 08:13] VITALS: PULSE 73
[2016-08-30] MEDS: DULOXETINE 30 MG CAP DR PO SCH (08:18)
[2016-08-30] MEDS: DOCUSATE SODIUM 250 MG CAP PO SCH (08:18)
[2016-08-30] MEDS: AMLODIPINE 5 MG TAB PO SCH (08:19)
[2016-08-30] MEDS: RIFAMPIN 300 MG CAP PO SCH (08:19)
[2016-08-30] MEDS: ISONIAZID 300 MG TAB PO SCH (08:19)
[2016-08-30] MEDS: NEBIVOLOL 5 MG TAB PO SCH (08:19)
[2016-08-30] MEDS: PYRIDOXINE 50 MG TAB PO SCH (08:19)
[2016-08-30] MEDS: ASPIRIN (EC) 81 MG TAB PO SCH (08:19)
[2016-08-30] MEDS: HYDROCHLOROTHIAZIDE 25 MG TAB PO SCH (10:58)
[2016-08-30] MEDS: VALSARTAN 160 MG TAB PO SCH (10:58)
[2016-08-30] MEDS: SALMETEROL/FLUTICASONE 250/50 INHA INH SCH (10:59)
[2016-08-30 11:00] VITALS: BP 143/85; PULSE 66
[2016-08-30] MEDS ORDERED: CIPR500T4 PO (11:24)
--- NOTE | 2016-08-30 17:37 | DS ---
DATE OF ADMISSION: 08/28/2016 DATE OF DISCHARGE: 08/30/2016 DISCHARGE DIAGNOSES: 1. Asthma with exacerbation. 2. Sepsis secondary to suspect bronchitis. 3. History of mycobacterial infection of the liver. 4. Essential hypertension. 5. History of major depression. HOSPITAL COURSE: This is a 70-year-old female with history of asthma, hypertension, dyslipidemia an d obesity as well as Mycobacterium infection of the liver who came to [facility] d ue to reports of shortness of breath and cough as well as some wheezing. Patient of note was hospit alized in September 2015 secondary to slipped lap band for which she did have removal and hernia repa ir by Dr. Thompson. At that time, she had a liver biopsy that did come back positive for melanoma an d isolated AFB compatible with mycobacterial infection. Of note, the patient was optimized and cont inued on her antibiotic regimen for that mycobacterial infection for her liver. For her shortness o f breath; however, was noted with some abdominal wheezing. Her chest x-ray showed normal chest radi ograph with no active consolidation. The patient was placed on bronchodilators as well as oxygen young pplement for which we did titrate it down. She was likely with acute bronchitis and we did continue her on azithromycin for this issue. Patient did have further urinalysis with Pseudomonas aeruginos a growing in it and we did provide her with appropriate antibiotic. During her course of stay, she did improve. Her wheezing did start to subside and she did respond well to steroid therapy. We did titrate her off the oxygen. She was otherwise optimized medically. We did continue her on her ant ihypertensives for hypertension and Cymbalta for her depression. During her course of stay, she did improve. She was instructed to follow up with primary care provider within a week. Plan of care w as discussed with patient and family and the patient and family did verbalize understanding. On the day of discharge, the patient was in stable condition. Discharge physical exam and vital signs are stable. CONDITION: Stable. DISCHARGE PLAN 1. Diet: Low fat, low cholesterol. 2. Patient to follow up with her primary care provider within 1 week. 3. Patient to call primary care provider if she has worsening shortness of breath. DISCHARGE MEDICATIONS 1. Amlodipine 5 mg p.o. b.i.d. 2. Zithromax tripack. 3. Cipro 500 mg p.o. b.i.d. 4. Prednisone taper. 5. ProAir 90 mcg 2 puffs q.6 hours as needed for shortness of breath. 6. Aspirin 81 mg p.o. every day. 7. Atorvastatin 10 mg p.o. at bedtime. 8. Colace 250 mg p.o. daily. 9. Duloxetine 60 mg p.o. b.i.d. 10. Nexium 40 mg p.o. every day. 11. Breo Ellipta 1 puff daily. 12. Hydrochlorothiazide 25 mg p.o. daily. 13. Isoniazid 300 mg p.o. daily. 14. Levothyroxine 75 mcg p.o. with breakfast. 15. Singular 10 mg p.o. at bedtime. 16. Bystolic 5 mg p.o. daily. 17. Paroxetine 50 mg p.o. daily. 18. Rifampin 300 mg p.o. b.i.d. 19. Valsartan 160 mg p.o. daily. DISCHARGE PROCESS TIME: 40 minutes. Discussed plan of care with Dr. France. Dictated By: DAVID KHAN NP for KATHY PAZ/HUA Conf#: [id number] DID#: [id number]
== END 2016-08-30 14:30 | disposition home or self-care (01) | DRG 872 ==
LOC: E/R 19:36 → PP2 22:11 → OBSVTOIN 08-28 07:50
PROVIDERS: ADMIT Internal Medicine; ATTEND Internal Medicine
DX: A41.9 Sepsis, unspecified organism (principal); J45.901 Unspecified asthma with (acute) exacerbation; I10 Essential (primary) hypertension; A31.9 Mycobacterial infection, unspecified; F32.9 Major depressive disorder, single episode, unspecified; B96.5 Pseudomonas (aeruginosa) (mallei) (pseudomallei) as the cause of diseases classified elsewhere; E78.5 Hyperlipidemia, unspecified; E66.9 Obesity, unspecified
CPT/HCPCS: 36415; 71010; 74177; 80048; 80053; 81003; 83036; 83605; 83735; 85025; 87040; 87086; 87400; 94640; 94664; 94760; 96374; 96375; 99217; G0378; J0456; J0696; J2930; J3475; J7030; Q9967

== ENCOUNTER 2016-09-03 11:36 | Emergency (ER) | payer MEDICARE, OTHER ==
[~2016-09-03] VITALS: Wt 75.0 kg
[~2016-09-03 11:36] MED LIST changes: -ALBU8.5H3 INH; +ALBU90AE INHALATION; +AMLO-145 PO; -AMLO5TAB4 PO; +ASPI-664 PO; -ASPI81TA3 PO; +AZIT500T2 PO; -CALC-277 PO; -CHOL100062 PO; +CIPR500T4 PO; -CYAN500T46 PO; -FER325 PO; -FLUT1AER IH; +FLUT1AER INHALATION; +HYD25 PO; -HYDR25TA6 PO; +NEBI5TAB9 PO; +PRED10TA PO; -PYRI100T59 PO; -RIF120L PO; +RIFA300C3 PO; -VIT1TABL46 PO
--- NOTE | 2016-09-03 14:58 | ERA ---
ER Documentation Chief Complaint Date/Time DATE: 09/03/16 TIME: 14:57 Chief Complaint ABDOMINAL PAIN AND NAUSEA AND VOMITING FOR THE PAST FEW DAYS HPI The patient is a 70-year-old female, presenting to the ER because of left-sided abdominal pain, vomiting mostly mucous for 1 day. She was discharged 4 days ago for bronchitis and hypertension with Cipro, Zithromax, prednisone and Norvasc. She complains of these medications made her nauseous. She complains of abdominal pain, 5/10, no aggravating or relieving factor. She denies fever, chills, neck pain, chest pain, dyspnea, dysuria, diarrhea, constipation. She does not smoke, drink Past medical history: Asthma, hypertension, anxiety, depression, hypothyroidism , dyslipidemia, history of Mycobacterium infection of the liver Past surgical history: Lap band removal, right knee replacement, herniorrhaphy ROS All systems reviewed and are negative except as per history of present illness. Medications Home Meds Active Scripts Pantoprazole* (Protonix*) 40 Mg Tablet.dr, 40 MG PO DAILY, #20 TAB Prov:ANA NAVA MD 09/03/16 Ondansetron (Ondansetron Odt) 4 Mg Tab.rapdis, 4 MG PO Q6H Y for NAUSEA AND/OR VOMITING, #10 TAB Prov:ANA NAVA MD 09/03/16 Ciprofloxacin Hcl* (Ciprofloxacin Hcl*) 500 Mg Tablet, 500 MG PO BID, #14 TAB Prov:DAVID KHAN 08/30/16 Amlodipine Besylate* (Amlodipine Besylate*) 5 Mg Tablet, 5 MG PO BID for 30 Days , TAB Prov:DAVID KHAN 08/29/16 Fluticasone-Vilanterol (Breo Ellipta Inhaler) 100-25 Mcg/Actuation Aer.pow.ba, 1 PUFF INHALATION BID, #1 INHALER Prov:DAVID KHAN 08/29/16 Albuterol Sulfate (Proair Respiclick) 90 Mcg Aer.pow.ba, 2 PUFFS INHALATION Q6 Y for PRN, #1 BOTTLE Prov:DAVID KHAN 08/29/16 Reported Medications Pyridoxine Hcl* (Pyridoxine Hcl*) 50 Mg Tablet, 50 MG PO DAILY, TAB 08/27/16 Isoniazid* (Isoniazid*) 300 Mg Tablet, 300 MG PO DAILY, TAB 08/27/16 Rifampin* (Rifampin*) 300 Mg Capsule, 300 MG PO BID, CAP 08/27/16 Hydrochlorothiazide* (Hydrochlorothiazide*) 25 Mg Tab, 25 MG PO DAILY, #30 TAB 08/27/16 Nebivolol* (Bystolic*) 5 Mg Tab, 5 MG PO DAILY, #30 TAB 08/27/16 Montelukast Sodium* (Montelukast Sodium*) 10 Mg Tablet, 10 MG PO QHS, #30 TAB 08/27/16 Duloxetine Hcl* (Duloxetine Hcl*) 60 Mg Capsule.dr, 60 MG PO BID, #30 CAP 08/27/16 Aspirin* (Aspirin* EC) 81 Mg Tablet.dr, 81 MG PO DAILY, TAB 08/27/16 Esomeprazole Mag Trihydrate (Nexium) 40 Mg Capsule.dr, 40 MG PO DAILY, #30 CAP 08/27/16 Atorvastatin Calcium (Atorvastatin Calcium) 10 Mg Tablet, 10 MG PO QHS, #30 TAB 08/27/16 Valsartan* (Diovan*) 160 Mg Tablet, 160 MG PO DAILY, TAB 08/27/16 Levothyroxine Sodium* (Levothyroxine Sodium*) 75 Mcg Tablet, 75 MCG PO BEFORE BREAKFAST, #30 TAB 08/27/16 Docusate Sodium* (Colace*) 250 Mg Capsule, 250 MG PO DAILY, #30 CAP 08/27/16 Discontinued Reported Medications Albuterol Sulfate* (Proair HFA*) 8.5 Gm Hfa.aer.ad, 2 PUFF INH Q6H Y for WHEEZING AND SOB, #1 INHALER 08/27/16 Fluticasone/Vilanterol (Breo Ellipta 200-25 Mcg INH) 1 Each Blst.w.dev, 1 PUFF INHALATION BID, #1 INHALER 08/27/16 Cyanocobalamin* (Vitamin B12*) 500 Mcg Tab, 500 MCG PO DAILY, TAB 04/25/16 Pyridoxine Hcl* (Vitamin B-6*) 100 Mg Tablet, 100 MG PO DAILY, TAB 04/25/16 Vitamin B Complex* (Vitamin B Complex*) 1 Each Tablet, 1 TAB PO DAILY, TAB 04/25/16 Cholecalciferol* (Vitamin D3*) 1,000 Unit Tablet, 2000 UNIT PO DAILY, TAB 04/25/16 Pyridoxine Hcl* (Pyridoxine Hcl*) 50 Mg Tablet, 50 MG PO DAILY, TAB 04/25/16 Duloxetine Hcl* (Duloxetine Hcl*) 60 Mg Capsule.dr, 60 MG PO BID, #30 CAP 04/25/16 Levothyroxine Sodium* (Levothyroxine Sodium*) 75 Mcg Tablet, 75 MCG PO BEFORE BREAKFAST, #30 TAB 04/25/16 Amlodipine Besylate* (Norvasc*) 5 Mg Tablet, 5 MG PO DAILY, TAB 09/12/15 Aspirin* (Aspirin* Chew) 81 Mg Tab.chew, 81 MG PO DAILY, TAB.CHEW 09/12/15 Docusate Sodium* (Colace*) 250 Mg Capsule, 250 MG PO BID Y for COUGH, #60 CAP 09/12/15 Atorvastatin Calcium (Atorvastatin Calcium) 10 Mg Tablet, 10 MG PO QHS, #30 TAB 09/12/15 Fluticasone-Vilanterol (Breo Ellipta Inhaler) 100-25 Mcg/Actuation Aer.pow.ba, 1 PUFF IH DAILY, EA 06/17/14 Albuterol Sulfate* (Proair HFA*) 8.5 Gm Hfa.aer.ad, 1-2 PUFF INH Q4-6HOURS, INH 06/17/14 Montelukast Sodium* (Montelukast Sodium*) 10 Mg Tablet, 10 MG PO HS, TAB 06/17/14 Esomeprazole Mag Trihydrate (Nexium) 40 Mg Capsule.dr, 40 MG PO DAILY, CAP 06/17/14 Valsartan* (Diovan*) 160 Mg Tablet, 160 MG PO DAILY, TAB 06/17/14 Calcium Carbonate/Vitamin D3 (OYSTER SHELL 500 MG + VIT D TB) 1 Each Tablet, 1 EACH PO DAILY 09/04/13 Hydrochlorothiazide (Hydrochlorothiazide) 25 Mg Tablet, 25 MG PO DAILY 04/17/11 Discontinued Scripts Prednisone* (Prednisone*) 10 Mg Tab, 10 MG PO DAILY, #30 TAB 1. Take 40mg by mouth daily for 3 days 2. Then 30mg by mouth daily for 3 days 3. Then 20mg by mouth daily for 3 days 4. Then 10mg by mouth daily for 3 days Prov:DAVID KHAN 08/29/16 Azithromycin* (Zithromax* Tri-Sarath) 500 Mg Tablet, 500 MG PO DAILY for 3 Days, TAB Prov:DAVID KHAN 08/29/16 Ferrous Sulfate* (Ferrous Sulfate*) 325 Mg Tabec, 325 MG PO TID, #60 TAB Prov:IJEOMA SENA MD 04/25/16 Rifampin* (Rifampin* Pediatric IV Syringe) 300 Mg Cap, 600 MG PO DAILY, #30 Prov:RAMANDEEP GUEVARA 10/04/15 Isoniazid* (Isoniazid*) 300 Mg Tab, 300 MG PO DAILY, #30 TAB Prov:RAMANDEEP GUEVARA 10/04/15 Allergies Allergies: Coded Allergies: No Known Allergy (Unverified , 09/03/16) PMhx/Soc History of Surgery: Yes (Lap band removal x2,2yrs ago,Right total knee replacement) Anesthesia Reaction: No Hx Neurological Disorder: No Hx Respiratory Disorders: Yes (asthma) Hx Cardiac Disorders: Yes (HTN) Hx Psychiatric Problems: No Hx Miscellaneous Medical Probl: Yes (Anxiety depression,gerd,hypothyroid) Hx Alcohol Use: No Hx Substance Use: No Hx Tobacco Use: No Physical Exam Vitals Vital Signs Date Time Temp Pulse Resp B/P Pulse Ox O2 Delivery O2 Flow Rate FiO2 09/03/16 17:32 98.6 80 20 137/65 100 Room Air 09/03/16 16:52 98.6 80 20 187/85 100 Room Air 09/03/16 11:57 98.8 68 20 191/84 100 Physical Exam Const: No acute distress. Head: Atraumatic. Eyes: Normal Conjunctiva. ENT: Normal External Ears, Nose and Mouth. Neck: Full range of motion. No meningismus. Resp: Clear to auscultation bilaterally. Cardio: Regular rate and rhythm, no murmurs. Abd: Soft, non distended, normal bowel sounds, vague and diffuse abdominal tenderness, no rigidity, rebound, CVA tenderness Skin: No petechiae or rashes. Back: No midline or flank tenderness. Ext: No cyanosis, or edema. Neur: Awake and alert. No focal deficit Psych: Normal Mood and Affect. Result Diagram: 09/03/16 1520 09/03/16 1520 Results 24 hrs Laboratory Tests Test 09/03/16 15:20 09/03/16 15:41 Activated Partial Thromboplast Time 23.3Sec Alanine Aminotransferase (ALT/SGPT) 44IU/L Albumin 4.3g/dl Albumin/Globulin Ratio 1.30 Alkaline Phosphatase 101IU/L Anion Gap 17 Aspartate Amino Transf (AST/SGOT) 30IU/L Basophils # 0.010^3/ul Basophils % 0.1% Blood Urea Nitrogen 33mg/dl Calcium Level 10.5mg/dl Carbon Dioxide Level 32mmol/L Chloride Level 96mmol/L Creatinine 0.98mg/dl Differential Comment AUTO w/SCAN Direct Bilirubin 0.00mg/dl Eosinophils # 0.010^3/ul Eosinophils % 0.0% Globulin 3.30g/dl Glucose Level 162mg/dl Hematocrit 45.1% Hemoglobin 15.2g/dl INR International Normalized Ratio 0.97 Indirect Bilirubin 0.4mg/dl Lipase 50U/L Lymphocytes # 1.110^3/ul Lymphocytes % 7.5% Mean Corpuscular Hemoglobin 30.0pg Mean Corpuscular Hemoglobin Concent 33.6g/dl Mean Corpuscular Volume 89.2fl Mean Platelet Volume 8.4fl Monocytes # 0.910^3/ul Monocytes % 6.0% Neutrophils # 12.310^3/ul Neutrophils % 86.4% Nucleated Red Blood Cells # 0.010^3/ul Nucleated Red Blood Cells % 0.0/100WBC Platelet Count 34709^3/UL Potassium Level 3.3mmol/L Prothrombin Time 12.9Sec Prothrombin Time Ratio 1.0 Red Blood Count 5.0610^6/ul Red Cell Distribution Width 13.6% Sodium Level 142mmol/L Total Bilirubin 0.4mg/dl Total Protein 7.6g/dl White Blood Count 14.310^3/ul Bedside Urine Blood Trace-intact Bedside Urine Glucose (UA) Negative Bedside Urine Ketones (LAB) Negative Bedside Urine Leukocyte Esterase (L Negative Bedside Urine Nitrite (LAB) Negative Bedside Urine Protein (LAB) Trace Bedside Urine pH (LAB) 8.5 Current Medications Medications (Trade) Dose Ordered Sig/Lois Route PRN Reason Start Time Stop Time Status Last Admin Dose Admin Morphine Sulfate (morphine) 4 mg ONCE STAT IV 09/03/16 15:04 09/03/16 15:06 DC 09/03/16 15:25 Ondansetron HCl 4 mg 4 mg ONCE STAT IV 09/03/16 15:04 09/03/16 15:06 DC 1/9/17 15:25 Sodium Chloride (NS) 500 ml @ 500 mls/hr Q1H ONCE IV 09/03/16 16:30 09/03/16 17:29 DC 09/03/16 16:41 Hydralazine HCl (Apresoline) 20 mg ONCE ONCE IV 09/03/16 17:00 09/03/16 17:01 DC 09/03/16 17:15 Procedures/MDM [place] [id number] Radiology Main Line: [phone] DIAGNOSTIC IMAGING REPORT Patient: BOB GIMENEZ : 1945 Age: 70 Sex: F MR #: [id number] DOS: 09/03/16 1504 Ordering MD: ANA NAVA MD Location: E/R Room/Bed: PROCEDURE: XR Chest. CLINICAL INDICATION: Chest pain vomiting, abdominal pain TECHNIQUE: Single frontal view of the chest was obtained. COMPARISON: 08/27/2016 FINDINGS: The heart is within normal limits. The thoracic aorta is calcified. The lungs are clear. There is no pleural effusion or pneumothorax. RPTAT: AA IMPRESSION: No acute disease. Calcified aorta consistent with atherosclerotic disease. .Rohit Richards MD, Date Time Electronically viewed and signed by .Rohit Richards MD, MD on 09/03/2016 15: 56 .S/ CC: NAA NAVA MD [place] [id number] Radiology Main Line: [phone] DIAGNOSTIC IMAGING REPORT Patient: BOB GIMENEZ : 1945 Age: 70 Sex: F MR #: [id number] DOS: 09/03/16 1504 Ordering MD: ANA NAVA MD Location: E/R Room/Bed: PROCEDURE: CT Abdomen and Pelvis without contrast. CLINICAL INDICATION: Abdominal pain. TECHNIQUE: Multiple contiguous axial CT images of the abdomen and pelvis were obtained without the administration of intravenous contrast. Coronal and sagittal reconstructions were also performed. CTDIvol (mGy): 17.50; Total Exam DLP (mGy-cm): 998.77. One or more of the following dose reduction techniques were utilized: - Automated exposure control. - Adjustment of the mA and/or kV according to patient size. - Use of iterative reconstruction technique. COMPARISON: 08/27/2016. FINDINGS: Limited imaging of the lower thorax demonstrates a tiny 3-4 mm nodule of the right middle lobe which is stable over time when compared to CT abdomen/pelvis from 2013. The liver and spleen are homogeneous in density. Scanned pneumobilia is present within the left hepatic lobe. The gallbladder is surgically absent. The pancreas and adrenal glands are unremarkable. The kidneys are symmetric in size. There are no nephroureteral stones. There is no hydronephrosis or abnormal perinephric inflammation. Small bilateral simple renal sinus cysts are present. The abdominal aorta is normal in caliber. Atherosclerotic calcification is present. There is no periaortic / retroperitoneal lymphadenopathy. A moderate hiatal hernia is again identified. The small and large intestines are unremarkable aside from the presence of a moderate volume of stool within the right colon. The appendix is normal. There are no focal inflammatory changes of the mesentery. There is no mesenteric lymphadenopathy. There is no ascites. The bladder is collapsed. The uterus is absent. The adnexa are unremarkable. There is no free pelvic fluid. There is no pelvic sidewall or inguinal lymphadenopathy. There is a small fat containing left inguinal hernia. Degenerative changes are seen throughout the lumbar spine. A grade 1 anterolisthesis of L5 over S1 and grade 1 retrolisthesis of L1 over L2 are again identified. There is a midline upper abdominal wall hernia containing fat measuring 12 mm in greatest diameter. IMPRESSION: No evidence of abdominopelvic mass, lymphadenopathy or acute inflammatory pathology. Moderate hiatal hernia, unchanged. Multilevel degenerative disk disease of the lumbar spine with grade 1 anterolisthesis and retrolisthesis at L5-S1 and L1-L2, respectively. RPTAT: HLST .Livia Shine MD, MD Date Time Electronically viewed and signed by .Livia Shine MD, MD on 09/03/2016 16:47 .T/ CC: ANA NAVA MD MEDICAL MAKING DECISION: The patient is a 70-year-old female, presenting with acute abdominal pain of unclear etiology, acute dehydration, acute hypokalemia, acute accelerated hypertension. She was treated with morphine for an IV for pain, Zofran 4 mg IV for nausea and 500 mL normal saline for dehydration, hydralazine 10 IV for acute accelerated hypertension, potassium chloride 20 mEq p.o. with good response. The differential diagnoses considered include but are not limited to cholelithiasis, cholecystitis, cystitis, pancreatitis, hepatitis, gastritis, peptic ulcer disease, gastric ulcer, appendicitis, diverticulitis, cholangitis, choledocholithiasis, partial small bowel obstruction. Departure Diagnosis: Primary Impression: Abdominal pain Additional Impressions: Dehydration Hypokalemia Condition: Good Comments She was discharged with Protonix, Zofran ODT and advised to follow-up with her doctor or return to the ER in 8 hours for reevaluation ANA NAVA MD Sep 03, 2016 14:58
[2016-09-03] MEDS ORDERED: morphine 4 MG/ML VIAL IV STA (15:04)
[2016-09-03] MEDS ORDERED: ONDANSETRON 4 MG INJ IV STA (15:04)
[2016-09-03 15:40] LABS: BASOPHILS % 0.1 % (0.0-2.0); HEMATOCRIT 45.1 % (37.0-47.0); HEMOGLOBIN 15.2 g/dl (12.0-16.0); LYMPHOCYTES # 1.1 10^3/ul (0.8-2.9); LYMPHOCYTES % 7.5 % (15.0-51.0); MEAN CORPUSCULAR HGB CONC 33.6 g/dl (32.0-37.0); MEAN CORPUSCULAR VOLUME 89.2 fl (82.0-101.0); MEAN PLATELET VOLUME 8.4 fl (7.4-10.4); MONOCYTE # 0.9 10^3/ul (0.3-0.9); NEUTROPHIL # 12.3 10^3/ul (1.6-7.5); NEUTROPHILS % 86.4 % (39.0-77.0); PLATELET COUNT 353 10^3/UL (140-440); RED BLOOD COUNT 5.06 10^6/ul (4.20-5.40); RED CELL DISTRIBUTION WIDTH 13.6 % (11.5-14.5); UNCORRECTED WBC 14.3 10^3/ul (4.8-10.8); WHITE BLOOD COUNT 14.3 10^3/ul (4.8-10.8)
[2016-09-03 15:42] LABS: URINE BLOOD (Dip) POC Trace-intact (NEGATIVE)
[2016-09-03 15:49] LABS: INR 0.97; PROTIME 12.9 Sec (12.2-14.2)
[2016-09-03 15:50] LABS: PARTIAL THROMBOPLASTIN TIME 23.3 Sec (25.0-35.0)
[2016-09-03 15:54] LABS: ALBUMIN 4.3 g/dl (3.3-4.9); CONDITION 1
[2016-09-03 15:55] LABS: POTASSIUM 3.3 mmol/L (3.5-5.1)
--- NOTE | 2016-09-03 15:56 | RADRPT ---
PROCEDURE: XR Chest. CLINICAL INDICATION: Chest pain vomiting, abdominal pain TECHNIQUE: Single frontal view of the chest was obtained. COMPARISON: 08/27/2016 FINDINGS: The heart is within normal limits. The thoracic aorta is calcified. The lungs are clear. There is no pleural effusion or pneumothorax. RPTAT: AA IMPRESSION: No acute disease. Calcified aorta consistent with atherosclerotic disease. .Rohit Richards MD, MD Date Time Electronically viewed and signed by .Rohit Richards MD, on 09/03/2016 15:56 .S/
[2016-09-03 15:57] LABS: ALBUMIN/GLOBULIN RATIO 1.3; BILIRUBIN,INDIRECT 0.4 mg/dl (0-1.1); BILIRUBIN,TOTAL 0.4 mg/dl (0.2-1.3); CALCIUM 10.5 mg/dl (8.4-10.2); CREATININE 0.98 mg/dl (0.44-1.00); TOTAL PROTEIN 7.6 g/dl (6.1-8.1)
[2016-09-03] MEDS ORDERED: SOD CHLORIDE 0.9% 500 ML IV ONE (16:30)
--- NOTE | 2016-09-03 16:47 | RADRPT ---
PROCEDURE: CT Abdomen and Pelvis without contrast. CLINICAL INDICATION: Abdominal pain. TECHNIQUE: Multiple contiguous axial CT images of the abdomen and pelvis were obtained without the administration of intravenous contrast. Coronal and sagittal reconstructions were also performed. CTDIvol (mGy): 17.50; Total Exam DLP (mGy-cm): 998.77. One or more of the following dose reduction techniques were utilized: - Automated exposure control. - Adjustment of the mA and/or kV according to patient size. - Use of iterative reconstruction technique. COMPARISON: 08/27/2016. FINDINGS: Limited imaging of the lower thorax demonstrates a tiny 3-4 mm nodule of the right middle lobe which is stable over time when compared to CT abdomen/pelvis from 2013. The liver and spleen are homogeneous in density. Scanned pneumobilia is present within the left hep atic lobe. The gallbladder is surgically absent. The pancreas and adrenal glands are unremarkable. The kidneys are symmetric in size. There are no nephroureteral stones. There is no hydronephrosis o r abnormal perinephric inflammation. Small bilateral simple renal sinus cysts are present. The abdominal aorta is normal in caliber. Atherosclerotic calcification is present. There is no per iaortic / retroperitoneal lymphadenopathy. A moderate hiatal hernia is again identified. The small and large intestines are unremarkable aside from the presence of a moderate volume of stool within the right colon. The appendix is normal. T here are no focal inflammatory changes of the mesentery. There is no mesenteric lymphadenopathy. T here is no ascites. The bladder is collapsed. The uterus is absent. The adnexa are unremarkable. There is no free pelv ic fluid. There is no pelvic sidewall or inguinal lymphadenopathy. There is a small fat containing left inguinal hernia. Degenerative changes are seen throughout the lumbar spine. A grade 1 anterolisthesis of L5 over S1 and grade 1 retrolisthesis of L1 over L2 are again identified. There is a midline upper abdominal wa ll hernia containing fat measuring 12 mm in greatest diameter. IMPRESSION: No evidence of abdominopelvic mass, lymphadenopathy or acute inflammatory pathology. Moderate hiatal hernia, unchanged. Multilevel degenerative disk disease of the lumbar spine with grade 1 anterolisthesis and retrolisth esis at L5-S1 and L1-L2, respectively. RPTAT: HLST .Livia Shine MD, MD Date Time Electronically viewed and signed by .Livia Shine MD, MD on 09/03/2016 16:47 .T/
[2016-09-03] MEDS ORDERED: hydrALAzine 20 MG INJ IV ONE (17:00)
[2016-09-03] MEDS ORDERED: ONDA4TAB14 PO (17:17)
[2016-09-03] MEDS ORDERED: PANT40TA3 PO (17:23)
[2016-09-03 17:32] VITALS: BP 137/65; PULSE 80; RESP 20; TEMP 98.6
== END 2016-09-03 16:35 | disposition home or self-care (01) ==
LOC: E/R 11:36
DX: R10.9 Unspecified abdominal pain (principal); E86.0 Dehydration; E87.6 Hypokalemia; I10 Essential (primary) hypertension; R11.2 Nausea with vomiting, unspecified; J45.909 Unspecified asthma, uncomplicated; E03.9 Hypothyroidism, unspecified; Z96.651 Presence of right artificial knee joint; Z79.82 Long term (current) use of aspirin
CPT/HCPCS: 36415; 71010; 74176; 80053; 81003; 83690; 85025; 85610; 85730; 96374; 96375; 99285; J0360; J2270; J2405; J7040

== ENCOUNTER 2017-01-14 23:01 | Emergency (ER) | payer MEDICARE, OTHER ==
[~2017-01-14] VITALS: Ht 157.5 cm; Wt 85.5 kg
[~2017-01-14 23:01] MED LIST changes: -AZIT500T2 PO; +ONDA4TAB14 PO; +PANT40TA3 PO; -PRED10TA PO
[2017-01-14 23:10] VITALS: Ht 157.5 cm; Wt 85.5 kg
[2017-01-15] MEDS ORDERED: ONDANSETRON 4 MG INJ IV STA (01:47)
[2017-01-15] MEDS ORDERED: SOD CHLORIDE 0.9% 500 ML IV STA (01:47)
[2017-01-15] MEDS ORDERED: morphine 2 MG INJ IV STA (01:47)
[2017-01-15 02:32] LABS: ADD SCAN DIFF NO
[2017-01-15 02:35] LABS: BASOPHILS % 0.1 % (0.0-2.0); EOSINOPHILS # 0.1 10^3/ul (0.0-0.5); HEMATOCRIT 39.5 % (37.0-47.0); HEMOGLOBIN 13.1 g/dl (12.0-16.0); MEAN CORPUSCULAR HEMOGLOBIN 30.8 pg (29.0-33.0); MEAN CORPUSCULAR HGB CONC 33.2 g/dl (32.0-37.0); MEAN CORPUSCULAR VOLUME 92.7 fl (82.0-101.0); MEAN PLATELET VOLUME 10.3 fl (7.4-10.4); MONOCYTE # 0.7 10^3/ul (0.3-0.9); MONOCYTES % 9.8 % (0.0-11.0); NEUTROPHILS % 58.8 % (39.0-77.0); PLATELET COUNT 186 10^3/UL (140-415); RED BLOOD COUNT 4.26 10^6/ul (4.20-5.40); RED CELL DISTRIBUTION WIDTH 12.3 % (11.5-14.5); WHITE BLOOD COUNT 6.8 10^3/ul (4.8-10.8)
[2017-01-15 02:36] LABS: ADD UMIC NO; URINE BILIRUBIN (Dip) NEGATIVE (NEGATIVE); URINE BLOOD (Dip) NEGATIVE (NEGATIVE); URINE COLOR LT. YELLOW (YELLOW); URINE GLUCOSE (Dip) NEGATIVE (NEGATIVE); URINE KETONES (Dip) NEGATIVE (NEGATIVE); URINE LEUKOCYTE ESTERASE (Dip) NEGATIVE (NEGATIVE); URINE NITRITE (Dip) NEGATIVE (NEGATIVE); URINE TOTAL PROTEIN (Dip) NEGATIVE (NEGATIVE); URINE UROBILINOGEN (Dip) 0.2 E.U./dL (0.1-1.0)
[2017-01-15 02:49] LABS: CHLORIDE 98 mmol/L (97-110)
[2017-01-15 02:50] LABS: ALBUMIN 3.7 g/dl (3.3-4.9); INR 1.02; PARTIAL THROMBOPLASTIN TIME 25.6 Sec (25.0-35.0); PROTIME 13.4 Sec (12.2-14.2); SODIUM 138 mmol/L (135-144)
[2017-01-15 02:52] LABS: CREATININE 0.96 mg/dl (0.44-1.00)
[2017-01-15 02:53] LABS: ALANINE AMINOTRANSFERASE 43 IU/L (13-69); ALBUMIN/GLOBULIN RATIO 1.37; ALKALINE PHOSPHATASE 91 IU/L (42-121); ANION GAP 13 (8-16); ASPARTATE AMINO TRANSFERASE 26 IU/L (15-46); BILIRUBIN,INDIRECT 0.3 mg/dl (0-1.1); BILIRUBIN,TOTAL 0.3 mg/dl (0.2-1.3); BLOOD UREA NITROGEN 25 mg/dl (7-20); CALCIUM 9.9 mg/dl (8.4-10.2); CARBON DIOXIDE 31 mmol/L (21-31); GLUCOSE 103 mg/dl (70-220); TOTAL PROTEIN 6.4 g/dl (6.1-8.1)
[2017-01-15 03:27] LABS: TROPONIN-I < 0.012 ng/ml (0.00-0.12)
--- NOTE | 2017-01-15 03:27 | RADRPT ---
PROCEDURE: CT of the abdomen and pelvis without contrast CLINICAL INDICATION: Abdominal Pain. TECHNIQUE: Spiral CT images through the abdomen and pelvis without the use of contrast. The admin istered radiation dose is CTDI 18.83 and DLP 1075.67. One or more of the following dose reduction t echniques were used: automated exposure control, adjustment of the mA and/or kV according to patient size, or use of iterative reconstruction technique. COMPARISON: None FINDINGS: Lack of oral and intravenous contrast somewhat limits evaluation. Slight dependent atelectasis of the lung bases is seen. No pleural effusion is seen. Tiny nodule laterally in the right lower lobe on image 28 is slightly better seen but may be unchanged. Stable tiny left lower lobe nodule on im age 28. 2 mm subpleural nodule laterally in the left lower lobe on the first image. Normal heart s ize. Large hiatal hernia again seen. Clips are again seen from prior cholecystectomy and at the le mario albetro of the mid diaphragm. The liver, spleen, adrenals, kidneys, and pancreas are unremarkable in appearance. Probable bilater al renal parapelvic cysts. Duodenal diverticulum with a small amount of calcification or calcified debris within.. There is no evidence for bowel obstruction, free air, or abscess. The appendix is normal in appearance. . Dense material is present within the colon which is otherwise unremarkable in appearance. Probable injection granulomas of the gluteal regions and anterior abdominal wall. Atherosclerotic change of the aorta and branches. No biliary or pancreatic ductal dilatation. No ad enopathy or ascites is seen. Calcified soft tissue nodule lateral to the urinary bladder again seen. The urinary bladder is unremarkable appearance. The uterus appears to be surgically absent. The ovaries are not identified. Significant degenerative change of the lumbar spine is again seen with multilevel listheses and old T12 compression fracture.. Small fat-containing left inguinal hernia. IMPRESSION: No definite acute abnormality of the abdomen or pelvis. Tiny bibasilar lung nodules, for which no s pecific follow-up is needed unless the patient had a known history of malignancy or is at high risk. RPTAT: HLBE Physician Lani Date Time Electronically viewed and signed by Physician Lani on 01/15/2017 03:26 GONZÁLEZ/
--- NOTE | 2017-01-15 03:43 | RADRPT ---
PROCEDURE: Chest. CLINICAL INDICATION: Chest pain. TECHNIQUE: Single frontal view of the chest was obtained. COMPARISON: 09/03/2016. FINDINGS: The cardiac silhouette is magnified. The aortic arch is unremarkable. There is no focal consolidat ion, vascular congestion or pleural effusion. There is no pneumothorax. IMPRESSION: No evidence for active cardiopulmonary disease. .Gregory Robles MD, Date Time Electronically viewed and signed by .Gregory Robles MD, on 01/15/2017 03:43 .T/
[2017-01-15] MEDS ORDERED: OMEP40CA6 PO (03:48)
[2017-01-15] MEDS ORDERED: FER325 PO (03:48)
[2017-01-15] MEDS ORDERED: NEBI5TAB9 PO (03:48)
[2017-01-15] MEDS ORDERED: BUPR75TA9 PO (03:48)
[2017-01-15] MEDS ORDERED: PRIMA (03:48)
[2017-01-15] MEDS ORDERED: MORINGA PO (03:48)
[2017-01-15] MEDS ORDERED: CYAN500T46 PO (03:51)
[2017-01-15] MEDS ORDERED: DOXY25TA33 PO (03:51)
--- NOTE | 2017-01-15 04:09 | ERD ---
ER Documentation Chief Complaint Date/Time DATE: 01/15/17 TIME: 04:06 Chief Complaint AP +VOMITING X 3 DAYS NO APPETITE HPI This 71-year-old female with abdominal pain and vomiting for 3 days. She says she has had no appetite as well. No fevers no chills. No other current complaints. Vomiting is nonbilious nonbloody. Abdominal pain is crampy and nonlocalizing. Denies any other current issues ROS All systems reviewed and are negative except as per history of present illness. Medications Home Meds Reported Medications Doxylamine Succinate* (Unisom Sleep Aid*) 25 Mg Tablet, 25 MG PO HS Y for SLEEP , TAB 01/15/17 Cyanocobalamin* (Vitamin B12*) 500 Mcg Tab, 1000 MCG PO DAILY, TAB 01/15/17 [[place]oringa] Unknown Strength No Conflict Check, PO DAILY 01/15/17 Omeprazole* (Omeprazole*) 40 Mg Capsule.dr, 40 MG PO DAILY, #30 CAP 01/15/17 Ferrous Sulfate* (Ferrous Sulfate*) 325 Mg Tabec, 325 MG PO DAILY, TAB 01/15/17 Bupropion Hcl* (Bupropion Hcl*) 75 Mg Tablet, 75 MG PO QHS, TAB 01/15/17 Nebivolol* (Bystolic*) 5 Mg Tab, 10 MG PO DAILY, #30 TAB 01/15/17 Isoniazid* (Isoniazid*) 300 Mg Tablet, 300 MG PO DAILY, TAB 08/27/16 Hydrochlorothiazide* (Hydrochlorothiazide*) 25 Mg Tab, 25 MG PO DAILY, #30 TAB 08/27/16 Montelukast Sodium* (Montelukast Sodium*) 10 Mg Tablet, 10 MG PO QHS, #30 TAB 08/27/16 Duloxetine Hcl* (Duloxetine Hcl*) 60 Mg Capsule.dr, 60 MG PO BID, #30 CAP 08/27/16 Aspirin* (Aspirin* EC) 81 Mg Tablet.dr, 81 MG PO DAILY, TAB 08/27/16 Atorvastatin Calcium (Atorvastatin Calcium) 10 Mg Tablet, 10 MG PO QHS, #30 TAB 08/27/16 Valsartan* (Diovan*) 160 Mg Tablet, 160 MG PO DAILY, TAB 08/27/16 Levothyroxine Sodium* (Levothyroxine Sodium*) 75 Mcg Tablet, 75 MCG PO BEFORE BREAKFAST, #30 TAB 08/27/16 Docusate Sodium* (Colace*) 250 Mg Capsule, 250 MG PO DAILY, #30 CAP 08/27/16 Discontinued Reported Medications [Prima] No Conflict Check 01/15/17 Pyridoxine Hcl* (Pyridoxine Hcl*) 50 Mg Tablet, 50 MG PO DAILY, TAB 08/27/16 Rifampin* (Rifampin*) 300 Mg Capsule, 300 MG PO BID, CAP 08/27/16 Nebivolol* (Bystolic*) 5 Mg Tab, 5 MG PO DAILY, #30 TAB 08/27/16 Esomeprazole Mag Trihydrate (Nexium) 40 Mg Capsule.dr, 40 MG PO DAILY, #30 CAP 08/27/16 Discontinued Scripts Pantoprazole* (Protonix*) 40 Mg Tablet.dr, 40 MG PO DAILY, #20 TAB Prov:ANA NAVA MD 09/03/16 Ondansetron (Ondansetron Odt) 4 Mg Tab.rapdis, 4 MG PO Q6H Y for NAUSEA AND/OR VOMITING, #10 TAB Prov:ANA NAVA MD 09/03/16 Ciprofloxacin Hcl* (Ciprofloxacin Hcl*) 500 Mg Tablet, 500 MG PO BID, #14 TAB Prov:REGDAVID PINTO 08/30/16 Amlodipine Besylate* (Amlodipine Besylate*) 5 Mg Tablet, 5 MG PO BID for 30 Days , TAB Prov:DAVID KHAN 08/29/16 Fluticasone-Vilanterol (Breo Ellipta Inhaler) 100-25 Mcg/Actuation Aer.pow.ba, 1 PUFF INHALATION BID, #1 INHALER Prov:DAVID KHAN 08/29/16 Albuterol Sulfate (Proair Respiclick) 90 Mcg Aer.pow.ba, 2 PUFFS INHALATION Q6 Y for PRN, #1 BOTTLE Prov:DAVID KHAN 08/29/16 Allergies Allergies: Coded Allergies: No Known Allergy (Unverified , 01/15/17) PMhx/Soc History of Surgery: Yes (Lap band removal x2,2yrs ago,Right total knee replacement) Anesthesia Reaction: No Hx Neurological Disorder: No Hx Respiratory Disorders: Yes (asthma) Hx Cardiac Disorders: Yes (HTN) Hx Psychiatric Problems: No Hx Miscellaneous Medical Probl: Yes (Anxiety depression,gerd,hypothyroid) Hx Alcohol Use: No Hx Substance Use: No Hx Tobacco Use: No Smoking Status: Unknown if ever smoked Physical Exam Vitals Vital Signs Date Time Temp Pulse Resp B/P Pulse Ox O2 Delivery O2 Flow Rate FiO2 01/14/17 23:10 98.1 70 20 135/71 98 Physical Exam Const: [] Head: Atraumatic Eyes: Normal Conjunctiva ENT: Normal External Ears, Nose and Mouth. Neck: Full range of motion..~ No meningismus. Resp: Clear to auscultation bilaterally Cardio: Regular rate and rhythm, no murmurs Abd: Soft, non tender, non distended. Normal bowel sounds Skin: No petechiae or rashes Back: No midline or flank tenderness Ext: No cyanosis, or edema Neur: Awake and alert Psych: Normal Mood and Affect Result Diagram: 01/15/1720401/15/17204 Results 24 hrs Laboratory Tests Test 01/15/17 02:05 White Blood Count 6.810^3/ul Red Blood Count 4.2610^6/ul Hemoglobin 13.1g/dl Hematocrit 39.5% Mean Corpuscular Volume 92.7fl Mean Corpuscular Hemoglobin 30.8pg Mean Corpuscular Hemoglobin Concent 33.2g/dl Red Cell Distribution Width 12.3% Platelet Count 16916^3/UL Mean Platelet Volume 10.3fl Neutrophils % 58.8% Lymphocytes % 29.0% Monocytes % 9.8% Eosinophils % 2.0% Basophils % 0.1% Nucleated Red Blood Cells % 0.0/100WBC Neutrophils # 4.010^3/ul Lymphocytes # 2.010^3/ul Monocytes # 0.710^3/ul Eosinophils # 0.110^3/ul Basophils # 0.010^3/ul Nucleated Red Blood Cells # 0.010^3/ul Prothrombin Time 13.4Sec Prothrombin Time Ratio 1.0 INR International Normalized Ratio 1.02 Activated Partial Thromboplast Time 25.6Sec Urine Color LT. YELLOW Urine Clarity CLEAR Urine pH 6.5 Urine Specific [place] <=1.005 Urine Ketones NEGATIVE Urine Nitrite NEGATIVE Urine Bilirubin NEGATIVE Urine Urobilinogen 0.2 E.U./dL Urine Leukocyte Esterase NEGATIVE Urine Hemoglobin NEGATIVE Urine Glucose NEGATIVE% Urine Total Protein NEGATIVE Sodium Level 138mmol/L Potassium Level 4.0mmol/L Chloride Level 98mmol/L Carbon Dioxide Level 31mmol/L Anion Gap 13 Blood Urea Nitrogen 25mg/dl Creatinine 0.96mg/dl Glucose Level 103mg/dl Lactic Acid Level 1.2mmol/L Calcium Level 9.9mg/dl Total Bilirubin 0.3mg/dl Direct Bilirubin 0.00mg/dl Indirect Bilirubin 0.3mg/dl Aspartate Amino Transf (AST/SGOT) 26IU/L Alanine Aminotransferase (ALT/SGPT) 43IU/L Alkaline Phosphatase 91IU/L Troponin I < 0.012ng/ml Total Protein 6.4g/dl Albumin 3.7g/dl Globulin 2.70g/dl Albumin/Globulin Ratio 1.37 Lipase 105U/L Current Medications Medications (Trade) Dose Ordered Sig/Lois Route PRN Reason Start Time Stop Time Status Last Admin Dose Admin Sodium Chloride (NS) 500 ml @ 500 mls/hr Q1H STAT IV 01/15/17 01:47 01/15/17 02:46 DC 01/15/17 02:19 Morphine Sulfate (morphine) 2 mg ONCE STAT IV 01/15/17 01:47 01/15/17 01:49 DC 01/15/17 02:19 Ondansetron HCl (Zofran Inj) 4 mg ONCE STAT IV 01/15/17 01:47 01/15/17 01:49 DC 01/15/17 02:19 Procedures/MDM Medical decision making: This is a 71 female vomiting of uncertain nonspecific etiology along with abdominal pain. There is no evidence of surgical abdomen on serial negative exams. She is able to tolerate p.o. at this point. To be discharged home with Zofran. She is follow-up in 8 hours for serial abdominal exams. Departure Diagnosis: Primary Impression: Abdominal pain Abdominal location: generalized Qualified Code: R10.84 - Generalized abdominal pain Condition: Stable ZOILA SANTAMARIAYelena January 15, 2017 04:09
[2017-01-15] MEDS ORDERED: TRAM50TA2 PO (04:12)
[2017-01-15] MEDS ORDERED: ONDA4TAB14 PO (04:12)
[2017-01-15 05:10] VITALS: BP 128/70; PULSE 75; RESP 17; TEMP 98
== END 2017-01-15 05:10 | disposition home or self-care (01) ==
LOC: E/R 23:01
DX: R10.84 Generalized abdominal pain (principal); R11.10 Vomiting, unspecified; I10 Essential (primary) hypertension; J45.909 Unspecified asthma, uncomplicated; E03.9 Hypothyroidism, unspecified; Z79.82 Long term (current) use of aspirin; Z96.651 Presence of right artificial knee joint
CPT/HCPCS: 36415; 71010; 74176; 80053; 81003; 83605; 83690; 84484; 85025; 85610; 85730; 96374; 96375; 99285; J2270; J2405; J7040

== ENCOUNTER 2017-03-19 19:10 | Emergency (ER) | payer MEDICARE, OTHER ==
[~2017-03-19] VITALS: Ht 162.6 cm; Wt 83.0 kg
[~2017-03-19 19:10] MED LIST changes: -ALBU90AE INHALATION; -AMLO-145 PO; +BUPR75TA9 PO; -CIPR500T4 PO; +CYAN500T46 PO; +DOXY25TA33 PO; -ESOM40CA PO; +FER325 PO; -FLUT1AER INHALATION; +MORINGA PO; +OMEP40CA6 PO; -PANT40TA3 PO; -PYRI50TA14 PO; -RIFA300C3 PO; +TRAM50TA2 PO
[2017-03-19 19:12] VITALS: Ht 162.6 cm; Wt 83.0 kg
[2017-03-19] MEDS ORDERED: SOD CHLORIDE 0.9% 1,000 ML IV STA (19:39)
[2017-03-19] MEDS ORDERED: morphine 4 MG/ML VIAL IV STA (19:39)
[2017-03-19 20:11] LABS: BASOPHILS % 0.3 % (0.0-2.0); EOSINOPHILS # 0.2 10^3/ul (0.0-0.5); EOSINOPHILS % 2.9 % (0.0-7.0); HEMATOCRIT 40.3 % (37.0-47.0); HEMOGLOBIN 13.5 g/dl (12.0-16.0); LYMPHOCYTES # 1.4 10^3/ul (0.8-2.9); MEAN CORPUSCULAR HEMOGLOBIN 31.2 pg (29.0-33.0); MEAN CORPUSCULAR HGB CONC 33.5 g/dl (32.0-37.0); MEAN CORPUSCULAR VOLUME 93.1 fl (82.0-101.0); MEAN PLATELET VOLUME 11.2 fl (7.4-10.4); MONOCYTE # 0.7 10^3/ul (0.3-0.9); MONOCYTES % 8.7 % (0.0-11.0); NEUTROPHIL # 5.2 10^3/ul (1.6-7.5); NEUTROPHILS % 69.6 % (39.0-77.0); PLATELET COUNT 221 10^3/UL (140-415); RED BLOOD COUNT 4.33 10^6/ul (4.20-5.40); RED CELL DISTRIBUTION WIDTH 12.2 % (11.5-14.5); WHITE BLOOD COUNT 7.5 10^3/ul (4.8-10.8)
[2017-03-19 20:27] LABS: INR 0.96; PROTIME 12.8 Sec (12.2-14.2)
[2017-03-19 20:28] LABS: PARTIAL THROMBOPLASTIN TIME 25.2 Sec (25.0-35.0)
[2017-03-19 20:29] LABS: ANION GAP 17 (8-16); BLOOD UREA NITROGEN 30 mg/dl (7-20); CALCIUM 9.9 mg/dl (8.4-10.2); CARBON DIOXIDE 33 mmol/L (21-31); CHLORIDE 96 mmol/L (97-110); GLUCOSE 115 mg/dl (70-220); POTASSIUM 4.9 mmol/L (3.5-5.1); SODIUM 141 mmol/L (135-144)
[2017-03-19 20:42] LABS: TROPONIN-I < 0.012 ng/ml (0.00-0.12)
--- NOTE | 2017-03-19 21:08 | RADRPT ---
PROCEDURE: XR Chest. CLINICAL INDICATION: Trauma. TECHNIQUE: PA and Lateral views of the chest were obtained. COMPARISON: Chest dated 09/03/2016. FINDINGS: Cardiomegaly. The lungs are clear. No signs of pleural fluid or pneumothorax are seen. No acute frac ture. Question dystrophic calcifications in the region of the axillary tail of the right breast, ne w over interval since 09/03/2016. Recommend mammography. Mild to moderate hiatal hernia contains air. IMPRESSION: 1. No evident acute thoracic injury. 2. Question new dystrophic calcifications in the right breast and recommend mammography. 3. Mild to moderate hiatal hernia contains air. RPTAT: [facility] Physician María Date Time Electronically viewed and signed by Physician María on 03/19/2017 21:07 RS/
[2017-03-20] MEDS ORDERED: morphine 4 MG/ML VIAL IV STA (00:27)
[2017-03-20] MEDS ORDERED: SOD CHLORIDE 0.9% 500 ML IV ONE (00:30)
[2017-03-20] MEDS ORDERED: HYDR-906 PO (01:03)
--- NOTE | 2017-03-20 01:14 | ERA ---
ER Documentation Chief Complaint Date/Time DATE: 03/20/17 TIME: 01:06 Chief Complaint sp ground level fall landed left side, left rib pain, left arm pain HPI This is a 71-year-old female presented with a chief complaint of fall. Was not witnessed. Patient denies any loss of consciousness or trauma to the head. Patient however does not remember the entire fall. The daughter is a historian and seems reliable. Patient is having pain on the left side of the chest were the majority of impact was taken. Patient does describe increased shortness of breath. Patient has a history of hypertension, diabetes mellitus is controlled with diet, asthma, hypothyroidism and degenerative disc disease. Patient has had a clot in the past that resolved on its own without treatment per patient's history. There is no recent travel or new medications. No recent hospitalizations or surgeries. Patient has no other complaints and describes no other associated manifestations. Nursing notes have been reviewed and are consistent with history given. ROS All systems reviewed and are negative except as per history of present illness. Medications Home Meds Active Scripts Hydrocodone/Acetaminophen (Hardwick 5-325 Tablet) 1 Each Tablet, 1 TAB PO Q6H Y for PAIN, #20 TAB Prov:ANA JOHNSON PA-C 03/20/17 Ondansetron (Ondansetron Odt) 4 Mg Tab.rapdis, 4 MG PO Q6H Y for NAUSEA AND/OR VOMITING, #10 TAB Prov:ZOILA MARSH 01/15/17 Tramadol HCl (Tramadol HCl) 50 Mg Tablet, 50 MG PO Q4 Y for PAIN, #20 TAB Prov:ZOILA MARSH 01/15/17 Reported Medications Doxylamine Succinate* (Unisom Sleep Aid*) 25 Mg Tablet, 25 MG PO HS Y for SLEEP , TAB 01/15/17 Cyanocobalamin* (Vitamin B12*) 500 Mcg Tab, 1000 MCG PO DAILY, TAB 01/15/17 [Moringa] Unknown Strength No Conflict Check, PO DAILY 01/15/17 Omeprazole* (Omeprazole*) 40 Mg Capsule.dr, 40 MG PO DAILY, #30 CAP 01/15/17 Ferrous Sulfate* (Ferrous Sulfate*) 325 Mg Tabec, 325 MG PO DAILY, TAB 01/15/17 Bupropion Hcl* (Bupropion Hcl*) 75 Mg Tablet, 75 MG PO QHS, TAB 01/15/17 Nebivolol* (Bystolic*) 5 Mg Tab, 10 MG PO DAILY, #30 TAB 01/15/17 Isoniazid* (Isoniazid*) 300 Mg Tablet, 300 MG PO DAILY, TAB 08/27/16 Hydrochlorothiazide* (Hydrochlorothiazide*) 25 Mg Tab, 25 MG PO DAILY, #30 TAB 08/27/16 Montelukast Sodium* (Montelukast Sodium*) 10 Mg Tablet, 10 MG PO QHS, #30 TAB 08/27/16 Duloxetine Hcl* (Duloxetine Hcl*) 60 Mg Capsule.dr, 60 MG PO BID, #30 CAP 08/27/16 Aspirin* (Aspirin* EC) 81 Mg Tablet.dr, 81 MG PO DAILY, TAB 08/27/16 Atorvastatin Calcium (Atorvastatin Calcium) 10 Mg Tablet, 10 MG PO QHS, #30 TAB 08/27/16 Valsartan* (Diovan*) 160 Mg Tablet, 160 MG PO DAILY, TAB 08/27/16 Levothyroxine Sodium* (Levothyroxine Sodium*) 75 Mcg Tablet, 75 MCG PO BEFORE BREAKFAST, #30 TAB 08/27/16 Docusate Sodium* (Colace*) 250 Mg Capsule, 250 MG PO DAILY, #30 CAP 08/27/16 Allergies Allergies: Coded Allergies: No Known Allergy (Unverified , 01/15/17) PMhx/Soc History of Surgery: Yes (Lap band removal x2,2yrs ago,Right total knee replacement) Anesthesia Reaction: No Hx Neurological Disorder: No Hx Respiratory Disorders: Yes (asthma) Hx Cardiac Disorders: Yes (HTN) Hx Psychiatric Problems: No Hx Miscellaneous Medical Probl: Yes (Anxiety depression,gerd,hypothyroid) Hx Alcohol Use: No Hx Substance Use: No Hx Tobacco Use: No Smoking Status: Never smoker Physical Exam Vitals Vital Signs Date Time Temp Pulse Resp B/P Pulse Ox O2 Delivery O2 Flow Rate FiO2 03/19/17 21:04 169/71 154/67 03/19/17 19:12 97.7 61 20 132/74 98 Physical Exam Const: [] Head: Atraumatic Eyes: Normal Conjunctiva ENT: Normal External Ears, Nose and Mouth. Neck: Full range of motion..~ No meningismus. Resp: Clear to auscultation bilaterally Cardio: Regular rate and rhythm, no murmurs Abd: Soft, non tender, non distended. Normal bowel sounds Skin: No petechiae or rashes Back: No midline or flank tenderness Ext: No cyanosis, or edema Neur: Awake and alert Psych: Normal Mood and Affect Result Diagram: 03/19/17195403/19/171954 Results 24 hrs Laboratory Tests Test 03/19/17 19:55 White Blood Count 7.510^3/ul Red Blood Count 4.3310^6/ul Hemoglobin 13.5g/dl Hematocrit 40.3% Mean Corpuscular Volume 93.1fl Mean Corpuscular Hemoglobin 31.2pg Mean Corpuscular Hemoglobin Concent 33.5g/dl Red Cell Distribution Width 12.2% Platelet Count 78265^3/UL Mean Platelet Volume 11.2fl Neutrophils % 69.6% Lymphocytes % 18.0% Monocytes % 8.7% Eosinophils % 2.9% Basophils % 0.3% Nucleated Red Blood Cells % 0.0/100WBC Neutrophils # 5.210^3/ul Lymphocytes # 1.410^3/ul Monocytes # 0.710^3/ul Eosinophils # 0.210^3/ul Basophils # 0.010^3/ul Nucleated Red Blood Cells # 0.010^3/ul Prothrombin Time 12.8Sec Prothrombin Time Ratio 1.0 INR International Normalized Ratio 0.96 Activated Partial Thromboplast Time 25.2Sec Sodium Level 141mmol/L Potassium Level 4.9mmol/L Chloride Level 96mmol/L Carbon Dioxide Level 33mmol/L Anion Gap 17 Blood Urea Nitrogen 30mg/dl Creatinine 1.00mg/dl Glucose Level 115mg/dl Calcium Level 9.9mg/dl Troponin I < 0.012ng/ml Current Medications Medications (Trade) Dose Ordered Sig/Lois Route PRN Reason Start Time Stop Time Status Last Admin Dose Admin Sodium Chloride (NS) 1,000 ml @ 1,000 mls/hr Q1H STAT IV 03/19/17 19:39 03/19/17 20:38 DC 03/19/17 20:06 Morphine Sulfate 4 mg 4 mg ONCE STAT IV 03/19/17 19:39 03/19/17 19:43 DC 03/19/17 20:04 Sodium Chloride (NS) 500 ml @ 500 mls/hr Q1H ONCE IV 03/20/17 00:30 03/20/17 01:29 03/20/17 00:07 Morphine Sulfate (morphine) 4 mg ONCE STAT IV 03/20/17 00:27 03/20/17 00:29 DC 03/20/17 00:36 Procedures/MDM This is a 71-year-old female presenting 1-2 hour status post fall of unknown cause. Postop mechanical with patient denies losing consciousness or impact to the head. Inspection of the head and neurological exam was unremarkable. I very low suspicion for intracranial pathology including stroke or intracranial bleed. Patient received 1 L bolus saline and 4 mg of morphine with adequate relief of pain. Before final evaluation patient was complaining of pain again. Reevaluation revealed tenderness of the ribs with palpation and remain the same. 4 mg of morphine IV was ordered and administered. Patient was observed for an hour after administration. Patient received an x-ray, glucose and labs. EKG was read by my attending is largely unremarkable with normal axis, good baseline, regular rate and rhythm, no ST elevation or depression and no T-wave abnormalities. Troponins were taken and were within normal limits. Glucose was taken and was within normal limits. CBC, CMP, urinalysis were obtained. CMP was remarkable for bun 30, carbon dioxide 33, anion gap 17. Chest x-ray was taken and read by the radiologist given the following impression: IMPRESSION: 1. No evident acute thoracic injury. 2. Question new dystrophic calcifications in the right breast and recommend mammography. 3. Mild to moderate hiatal hernia contains air. I very little suspicion for pneumothorax, bony involvement, or other acute lung pathologies. I spoke with my attending Dr. Marsh about this case and he is agreed with the assessment and plan. Will be prescribed Hardwick 5/325 mg p.o. at home. A little suspicion for acute coronary syndrome, pneumonia, pulmonary embolism, or bacterial involvement. I have spoke with the patient regarding their condition and future management. They have verbally responded that they understand their status and treatment plan. The patients vitals are stable, and their current condition is appropriate for discharge. The patient will be given discharge instructions with return precautions. Departure Diagnosis: Primary Impression: Fall Qualified Code: W19.XXXA - Fall, initial encounter Condition: Stable Patient Instructions: Anemia and Kidney Disease Additional Instructions: Follow up with your PCP within the next 1-3 days for a more thorough evaluation and a possible referral to a specialist. Return the the emergency department immediately if symptoms worsen or change. If you have any questions regarding medications, ask your pharmacist or us before you leave. If any adverse reactions occur while taking your medications, discontinue the treatment and return to the emergency department immediately. Take your medications as directed, and complete the entire course of treatment. ANA JOHNSON PA-C Mar 20, 2017 01:14
[2017-03-20 01:21] VITALS: BP 131/66; PULSE 60; RESP 20
== END 2017-03-20 01:22 | disposition home or self-care (01) ==
LOC: FTE 19:10
DX: S29.9XXA Unspecified injury of thorax, initial encounter (principal); S49.92XA Unspecified injury of left shoulder and upper arm, initial encounter; I10 Essential (primary) hypertension; J45.909 Unspecified asthma, uncomplicated; E03.9 Hypothyroidism, unspecified; E11.9 Type 2 diabetes mellitus without complications; R07.9 Chest pain, unspecified; W18.39XA Other fall on same level, initial encounter; Y92.9 Unspecified place or not applicable; Z96.651 Presence of right artificial knee joint; Z79.82 Long term (current) use of aspirin
CPT/HCPCS: 71020; 80048; 84484; 85025; 85610; 85730; 93005; J2270; J7030; J7040; 36415; 96374; 96376

== ENCOUNTER 2017-03-31 05:52 | Emergency (ER) | payer MEDICARE, OTHER ==
[~2017-03-31] VITALS: Ht 160 cm; Wt 80.0 kg
[~2017-03-31 05:52] MED LIST changes: +HYDR-906 PO
[2017-03-31 05:55] VITALS: Ht 160 cm; Wt 80.0 kg
[2017-03-31] MEDS ORDERED: ONDANSETRON 4 MG INJ IV STA ×2 (06:17→07:54)
[2017-03-31] MEDS ORDERED: FAMOTIDINE 20 MG INJ IV STA (06:17)
[2017-03-31] MEDS ORDERED: SOD CHLORIDE 0.9% 1,000 ML IV STA ×2 (06:17→07:12)
[2017-03-31] MEDS ORDERED: KETOROLAC 30 MG INJ IV STA (06:17)
[2017-03-31 06:22] VITALS: TEMP 98.3
--- NOTE | 2017-03-31 06:42 | ERD ---
ER Documentation Chief Complaint Date/Time DATE: 03/31/17 TIME: 06:33 Chief Complaint vomitting all night, diarrhea, epigastric pain HPI This is a 71-year-old female with a known history of hypertension a hiatal hernia and high cholesterol. The patient had a previous cholecystectomy right knee replacement and gastric band which was removed 2 years ago with respect to her past surgical history. She presents to the emergency department today after she developed a sudden onset of nausea at 9 PM yesterday evening, 9 hours prior to arrival. The patient indicated shortly after the nausea she developed an episode of nonbloody nonbilious emesis. The patient's last meal was at 1:30 PM where she ate a turkey burger and fries at a restaurant. Since the initial onset of emesis she has had 13 episodes of nonbloody nonbilious emesis that occur roughly every 20-30 minutes. At 1:30 AM she developed loose watery stools. She is complaining of abdominal cramping prior to the diarrhea. She has had no fevers or shaking or chills. She has been unable to take any of her medications as she cannot tolerate oral intake. She denies a headache or changes in vision. She has no chest pain or pressure that radiates to the neck arm back or jaw. She denies any shortness of breath at rest or exertion. ROS All systems reviewed and are negative except as per history of present illness. Medications Home Meds Active Scripts Cephalexin* (Keflex*) 500 Mg Capsule, 500 MG PO QID for 7 Days, CAP Prov:ALEXANDER RODRIGES 03/31/17 Ondansetron (Ondansetron Odt) 4 Mg Tab.rapdis, 4 MG PO Q6H Y for NAUSEA AND/OR VOMITING, #20 TAB Prov:ALEXANDER RODRIGES 03/31/17 Reported Medications [[place] 5000MG] No Conflict Check, 2 TAB PO DAILY 03/31/17 Pantoprazole* (Pantoprazole*) 40 Mg Tablet.dr, 40 MG PO AC BREAKFAST, TAB 03/31/17 Doxylamine Succinate* (Unisom Sleep Aid*) 25 Mg Tablet, 25 MG PO HS Y for SLEEP , TAB 01/15/17 Cyanocobalamin* (Vitamin B12*) 500 Mcg Tab, 1000 MCG PO DAILY, TAB 5/23/17 Ferrous Sulfate* (Ferrous Sulfate*) 325 Mg Tabec, 325 MG PO DAILY, TAB 01/15/17 Bupropion Hcl* (Bupropion Hcl*) 75 Mg Tablet, 75 MG PO QHS, TAB 01/15/17 Nebivolol* (Bystolic*) 5 Mg Tab, 10 MG PO DAILY, #30 TAB 01/15/17 Hydrochlorothiazide* (Hydrochlorothiazide*) 25 Mg Tab, 25 MG PO DAILY, #30 TAB 08/27/16 Montelukast Sodium* (Montelukast Sodium*) 10 Mg Tablet, 10 MG PO QHS, #30 TAB 08/27/16 Duloxetine Hcl* (Duloxetine Hcl*) 60 Mg Capsule.dr, 60 MG PO BID, #30 CAP 08/27/16 Aspirin* (Aspirin* EC) 81 Mg Tablet.dr, 81 MG PO DAILY, TAB 08/27/16 Atorvastatin Calcium (Atorvastatin Calcium) 10 Mg Tablet, 10 MG PO QHS, #30 TAB 08/27/16 Valsartan* (Diovan*) 160 Mg Tablet, 160 MG PO DAILY, TAB 08/27/16 Levothyroxine Sodium* (Levothyroxine Sodium*) 75 Mcg Tablet, 75 MCG PO BEFORE BREAKFAST, #30 TAB 08/27/16 Docusate Sodium* (Colace*) 250 Mg Capsule, 250 MG PO TID, #30 CAP 08/27/16 Discontinued Reported Medications [[place]a] Unknown Strength No Conflict Check, PO DAILY 01/15/17 Omeprazole* (Omeprazole*) 40 Mg Capsule.dr, 40 MG PO DAILY, #30 CAP 01/15/17 Isoniazid* (Isoniazid*) 300 Mg Tablet, 300 MG PO DAILY, TAB 08/27/16 Discontinued Scripts Hydrocodone/Acetaminophen ([place] 5-325 Tablet) 1 Each Tablet, 1 TAB PO Q6H Y for PAIN, #20 TAB Prov:ANA JOHNSON PA-C 03/20/17 Ondansetron (Ondansetron Odt) 4 Mg Tab.rapdis, 4 MG PO Q6H Y for NAUSEA AND/OR VOMITING, #10 TAB Prov:ZOILA SANTAMARIA 01/15/17 Tramadol HCl (Tramadol HCl) 50 Mg Tablet, 50 MG PO Q4 Y for PAIN, #20 TAB Prov:ZOILA SANTAMARIA. 01/15/17 Allergies Allergies: Coded Allergies: No Known Allergy (Unverified , 03/31/17) PMhx/Soc History of Surgery: Yes (knee sx, gastic band-removed) Anesthesia Reaction: No Hx Neurological Disorder: No Hx Respiratory Disorders: No Hx Cardiac Disorders: Yes (HTN) Hx Psychiatric Problems: No Hx Miscellaneous Medical Probl: No Hx Alcohol Use: Yes (socially) Hx Substance Use: No Hx Tobacco Use: No Smoking Status: Never smoker Physical Exam Vitals Vital Signs Date Time Temp Pulse Resp B/P Pulse Ox O2 Delivery O2 Flow Rate FiO2 03/31/17 10:27 64 18 161/74 99 Room Air 03/31/17 06:22 98.3 50 18 215/80 99 Room Air 03/31/17 05:55 97.8 56 24 233/109 99 Physical Exam Constitutional:Well-developed. Well-nourished. HEENT:Normocephalic. Atraumatic.Pupils were equal round reactive to light. Dry mucous membranes.No tonsillar exudates. Funduscopy exam showed sharp optic disc bilaterally venous pulsations are present Neck: No nuchal rigidity. No lymphadenopathy. No posterior cervical spine tenderness or step-offs. Respiratory: Not using accessory muscles of respiration.Lungs were clear to auscultation bilaterally. No rhonchi. No rales. No wheezing. Cardiovascular: Regular rate regular rhythm.No murmurs. No rubs were appreciated.S1, S2 normal. Distal pulses are palpable 2+ bilaterally. GI: Abdomen was soft. Mild tenderness left lower quadrant. Non Distended. No pulsatile abdominal masses or bruits. No rebound. No guarding. Bowel sounds were present and normal. Muscle skeletal: Full range of motion of both the upper and lower extremities bilaterally.Normal muscle tone.No assymetrical calf tenderness or swelling. Skin: No petechia, no purpura. No lesions on the palms or the soles of the feet. No maculopapular rash. NEURO: Patient was alert, awake, orientated x3.No facial droop. Gait observed and normal with no ataxia.Speech had regular rate and rhythm. No focal neurological deficits. Result Diagram: 03/31/1727 03/31/17 0627 Results 24 hrs Laboratory Tests Test 03/31/17 06:27 White Blood Count 10.110^3/ul Red Blood Count 4.3910^6/ul Hemoglobin 13.6g/dl Hematocrit 40.1% Mean Corpuscular Volume 91.3fl Mean Corpuscular Hemoglobin 31.0pg Mean Corpuscular Hemoglobin Concent 33.9g/dl Red Cell Distribution Width 12.1% Platelet Count 62071^3/UL Mean Platelet Volume 10.5fl Neutrophils % 84.6% Lymphocytes % 11.2% Monocytes % 3.3% Eosinophils % 0.2% Basophils % 0.1% Nucleated Red Blood Cells % 0.0/100WBC Neutrophils # 8.610^3/ul Lymphocytes # 1.110^3/ul Monocytes # 0.310^3/ul Eosinophils # 0.010^3/ul Basophils # 0.010^3/ul Nucleated Red Blood Cells # 0.010^3/ul Prothrombin Time 13.2Sec Prothrombin Time Ratio 1.0 INR International Normalized Ratio 1.00 Activated Partial Thromboplast Time 26.7Sec Urine Color YELLOW Urine Clarity TURBID Urine pH 7.0 Urine Specific [place] 1.015 Urine Ketones NEGATIVEmg/dL Urine Nitrite NEGATIVEmg/dL Urine Bilirubin NEGATIVEmg/dL Urine Urobilinogen NEGATIVEmg/dL Urine Leukocyte Esterase NEGATIVELeu/ul Urine Microscopic RBC 5/HPF Urine Microscopic WBC 17/HPF Urine Amorphous Crystals MANY/HPF Urine Yeast (Budding) MANY/HPF Urine Hemoglobin NEGATIVEmg/dL Urine Glucose NEGATIVEmg/dL Urine Total Protein NEGATIVEmg/dl Sodium Level 146mmol/L Potassium Level 3.8mmol/L Chloride Level 100mmol/L Carbon Dioxide Level 30mmol/L Anion Gap 20 Blood Urea Nitrogen 30mg/dl Creatinine 0.84mg/dl Glucose Level 241mg/dl Calcium Level 10.8mg/dl Total Bilirubin 0.3mg/dl Direct Bilirubin 0.00mg/dl Indirect Bilirubin 0.3mg/dl Aspartate Amino Transf (AST/SGOT) 27IU/L Alanine Aminotransferase (ALT/SGPT) 37IU/L Alkaline Phosphatase 120IU/L Troponin I < 0.012ng/ml Total Protein 7.5g/dl Albumin 4.6g/dl Globulin 2.90g/dl Albumin/Globulin Ratio 1.58 Amylase Level 91U/L Lipase 62U/L Current Medications Medications (Trade) Dose Ordered Sig/Lois Route PRN Reason Start Time Stop Time Status Last Admin Dose Admin Sodium Chloride (NS) 1,000 ml @ 1,000 mls/hr Q1H STAT IV 03/31/17 06:17 03/31/17 07:16 DC 03/31/17 06:41 Ondansetron HCl (Zofran Inj) 4 mg ONCE STAT IV 03/31/17 06:17 03/31/17 06:22 DC 03/31/17 06:42 Famotidine (Pepcid Iv) 20 mg ONCE STAT IV 03/31/17 06:17 03/31/17 06:22 DC 03/31/17 06:42 Ketorolac Tromethamine (Toradol) 30 mg ONCE STAT IV 03/31/17 06:17 03/31/17 06:22 DC 03/31/17 06:42 Clotrimazole (Lotrimin Cr) 1 applic ONCE ONCE TOP 03/31/17 07:00 03/31/17 07:01 DC Metoclopramide HCl 10 mg 10 mg ONCE ONCE IV 03/31/17 07:30 03/31/17 07:31 DC 03/31/17 07:20 Sodium Chloride (NS) 1,000 ml @ 1,000 mls/hr Q1H STAT IV 03/31/17 07:12 03/31/17 08:11 DC 03/31/17 07:19 Hydralazine HCl (Apresoline) 10 mg ONCE ONCE IV 03/31/17 07:30 03/31/17 07:31 DC 03/31/17 07:21 IV Flush 10 ml 10 ml STK-MED ONCE .ROUTE 03/31/17 07:47 03/31/17 07:48 DC Sodium Chloride (NS) 200 ml @ ud STK-MED ONCE .ROUTE 03/31/17 07:47 03/31/17 07:48 DC Iohexol 150 ml 150 ml STK-MED ONCE .ROUTE 03/31/17 07:47 03/31/17 07:48 DC Ceftriaxone Sodium (Rocephin) 50 ml @ 100 mls/hr ONCE ONCE IVPB 03/31/17 08:00 03/31/17 08:29 DC 03/31/17 08:44 Ondansetron HCl (Zofran Inj) 4 mg ONCE STAT IV 03/31/17 07:54 03/31/17 07:56 DC Procedures/MDM This patient presented to the emergency department with abdominal pain and was seen and evaluated by myself. My differential diagnosis included but was not limited to abdominal aortic aneurysm, appendicitis, pancreatitis, perforated peptic ulcer, perforated viscus, Boerhaaves syndrome or visceral pain such as diverticulitis, DKA, esophagitis, hepatitis or bowel obstruction. The patient was placed on a manager monitoring, continuous pulse oximetry, and IV access was established by nursing staff. The patient received IV fluids Zofran and IV Pepcid as the patient had multiple episodes of emesis. I did feel her symptoms are likely result of a viral etiology. Antidiarrheals were not given due to the fact that again this appeared to be a viral etiology. This patient also presented to the emergency department with severely elevated blood pressure. My differential diagnosis included but was not limited to conditions that could end-organ damage such as acute coronary syndrome, acute pulmonary edema, aortic dissection, subarachnoid hemorrhage, intracerebral hemorrhage, cerebral infarction, withdrawal syndromes from beta blockers, or states of catecholamine excess such as pheochromocytoma or drug intoxication. Patient blood pressure improved with IV hydralazine Ancillary lab work was obtained. There was no elevation in the BUN and creatinine to suggest acute renal failure. Electrolytes were normal. Cardiac enzyme was normal and the 12 lead EKG showed no acute ischemic changes or left ventricular hypertrophy. 12 Lead EKG tracing ordered and reviewed by myself showed: Sinus bradycardia 59 bpm and no arrhythmia. UT interval normal. QRS duration normal. No ST segment elevation No ST segment depression. No changes consistent with acute ischemia. As obtained a CT scan of the abdomen and pelvis with IV contrast which indicated the following reviewed by myself and the radiologist: 1. Moderate to large hiatal hernia is again noted, unchanged from the prior CT. 2. Gallbladder and uterus are surgically absent. 3. Aortoiliac atherosclerotic calcifications are present. 4. No mass, lymphadenopathy, or focal acute inflammatory process is identified. Patient also had a mild urinary tract infection. Urine culture was obtained the patient was given a dose of IV ceftriaxone in the emergency department and felt comfortable being discharged home with oral Keflex The patient had hyperglycemia without ketosis. She received a total of 2 L boluses of normal saline. I did feel the patient's symptoms were more likely result of a viral etiology. She received multiple doses of antiemetics which included Reglan and Zofran and was able to tolerate oral intake. She stated she felt comfortable being discharged home with a prescription of Zofran. Given that the patient had an absence of cerebral, ocular, cardiac or renal damage the hypertensive urgency was treated with IV agents in the emergency room with improvement of the patient's blood pressure. The patient likely appeared to be complaint with primary care physician and will follow up with their PCP in the next 24-48 hours. They were instructed to return to the emergency department at anytime if there is any worsening of their condition such as development of chest pain or a headache. They were instructed to resume previous medication regimen or initiate a suitable medication regimen under care of the PCP to enable proper monitoring for drug reactions. The patient was also informed on the adverse side effects and adverse drug interactions of the medications prescribed to them by myself. The patient gave informed consent to the prescription of the new medication. The patient was discharged home in fair condition. They were instructed to return to the emergency department at any time if there was any worsening of their condition. Departure Diagnosis: Primary Impression: Nausea, vomiting, and diarrhea Additional Impressions: Accelerated hypertension Hyperglycemia without ketosis Urinary tract infection Condition: Fair ALEXANDER RODRIGES Mar 31, 2017 06:42
[2017-03-31 06:59] LABS: BASOPHILS % 0.1 % (0.0-2.0); EOSINOPHILS % 0.2 % (0.0-7.0); HEMATOCRIT 40.1 % (37.0-47.0); HEMOGLOBIN 13.6 g/dl (12.0-16.0); LYMPHOCYTES # 1.1 10^3/ul (0.8-2.9); LYMPHOCYTES % 11.2 % (15.0-51.0); MEAN CORPUSCULAR HGB CONC 33.9 g/dl (32.0-37.0); MEAN CORPUSCULAR VOLUME 91.3 fl (82.0-101.0); MEAN PLATELET VOLUME 10.5 fl (7.4-10.4); MONOCYTE # 0.3 10^3/ul (0.3-0.9); MONOCYTES % 3.3 % (0.0-11.0); NEUTROPHIL # 8.6 10^3/ul (1.6-7.5); NEUTROPHILS % 84.6 % (39.0-77.0); PLATELET COUNT 375 10^3/UL (140-415); RED BLOOD COUNT 4.39 10^6/ul (4.20-5.40); RED CELL DISTRIBUTION WIDTH 12.1 % (11.5-14.5); WHITE BLOOD COUNT 10.1 10^3/ul (4.8-10.8)
[2017-03-31] MEDS ORDERED: CLOTRIMAZOLE 1% 30 GM CR TOP ONE (07:00)
[2017-03-31 07:15] LABS: PARTIAL THROMBOPLASTIN TIME 26.7 Sec (25.0-35.0); PROTIME 13.2 Sec (12.2-14.2)
[2017-03-31 07:18] LABS: ALBUMIN 4.6 g/dl (3.3-4.9); ALBUMIN/GLOBULIN RATIO 1.58; BILIRUBIN,INDIRECT 0.3 mg/dl (0-1.1); BILIRUBIN,TOTAL 0.3 mg/dl (0.2-1.3); CALCIUM 10.8 mg/dl (8.4-10.2); CREATININE 0.84 mg/dl (0.44-1.00); POTASSIUM 3.8 mmol/L (3.5-5.1); TOTAL PROTEIN 7.5 g/dl (6.1-8.1)
[2017-03-31 07:19] LABS: ADD UMIC YES; UR AMORPHOUS CRYSTAL MANY /HPF (NONE SEEN); UR ASCORBIC ACID 20 mg/dL (NEGATIVE); UR BILIRUBIN (Dip) NEGATIVE (NEGATIVE); UR BLOOD (Dip) NEGATIVE (NEGATIVE); UR BUDDING YEAST MANY /HPF (NONE SEEN); UR CLARITY TURBID (CLEAR); UR COLOR YELLOW (YELLOW); UR GLUCOSE (Dip) NEGATIVE (NEGATIVE); UR KETONES (Dip) NEGATIVE (NEGATIVE); UR LEUKOCYTE ESTERASE (Dip) NEGATIVE Leu/ul (NEGATIVE); UR NITRITE (Dip) NEGATIVE (NEGATIVE); UR RBC 5 /HPF (0-5); UR SPECIFIC GRAVITY (Dip) 1.015 (1.003-1.030); UR TOTAL PROTEIN (Dip) NEGATIVE (NEGATIVE); UR UROBILINOGEN (Dip) NEGATIVE (NEGATIVE); UR WBC CLUMPS FEW /HPF (NONE SEEN)
[2017-03-31] MEDS ORDERED: hydrALAzine 20 MG INJ IV ONE (07:30)
[2017-03-31] MEDS ORDERED: METOCLOPRAMIDE 10 MG INJ IV ONE (07:30)
[2017-03-31] MEDS ORDERED: IOHEXOL 300MG/ML 150 ML BTL ONE (07:47)
[2017-03-31] MEDS ORDERED: SOD CHLORIDE 0.9% 200 ML ONE (07:47)
[2017-03-31] MEDS ORDERED: CEFTRIAXONE 1 GM/50 ML (PMX) 50 ML IVPB ONE (08:00)
--- NOTE | 2017-03-31 08:20 | RADRPT ---
PROCEDURE: CT Abdomen and Pelvis with contrast. CLINICAL INDICATION: Vomiting, epigastric pain TECHNIQUE: CT of the abdomen and pelvis was performed on a multi-detector scanner following the un complicated IV administration of 90 cc of Omnipaque 300. Coronal and sagittal images were reformatt ed from the axial data set. One or more of the following dose reduction techniques were used: autom ated exposure control, adjustment of the mA and/or kV according to patient size, use of iterative r econstruction technique. CTDI = 20.46 mGy. DLP = 1153.25 mGy-cm. COMPARISON: CT, 01/15/2017 FINDINGS: CT abdomen: The lung bases are clear. The heart size is normal, without pericardial effusion. Gallbladder is s urgically absent. Liver, biliary tree, pancreas, spleen, adrenal glands and kidneys are unremarkabl e. No urolithiasis or obstructive uropathy is identified. Moderate to large hiatal hernia is noted . There is no abdominal aortic aneurysm or dissection. Aortic vascular calcifications are present. T here is no retroperitoneal lymphadenopathy. The luis hepatis region is clear. CT pelvis: There is no bowel obstruction, free intraperitoneal air or abscess. No diverticulosis, diverticulit is or colitis is identified. The appendix is well visualized and normal. Urinary bladder is grossl y unremarkable. Uterus is surgically absent. No pelvic mass, free fluid or lymphadenopathy is iden tified. The surrounding osseous structures are remarkable for degenerative enthesopathy of the spine. No os teolytic or osteoblastic lesion is detected. IMPRESSION: 1. Moderate to large hiatal hernia is again noted, unchanged from the prior CT. 2. Gallbladder and uterus are surgically absent. 3. Aortoiliac atherosclerotic calcifications are present. 4. No mass, lymphadenopathy, or focal acute inflammatory process is identified. RPTAT: PP .Shorty Aguero MD, MD Date Time Electronically viewed and signed by .Shorty Aguero MD, MD on 03/31/2017 08:20 .R/
[2017-03-31 10:27] VITALS: BP 161/74; PULSE 64; RESP 18
[2017-03-31] MEDS ORDERED: CEPH-443 PO (10:36)
[2017-03-31] MEDS ORDERED: ONDA4TAB14 PO (10:36)
[2017-03-31] MEDS ORDERED: PANT40TA4 PO (10:49)
[2017-03-31] MEDS ORDERED: MORINGA PO (10:52)
== END 2017-03-31 11:07 | disposition home or self-care (01) ==
LOC: E/R 05:52
DX: R11.2 Nausea with vomiting, unspecified (principal); R19.7 Diarrhea, unspecified; I10 Essential (primary) hypertension; R73.9 Hyperglycemia, unspecified; N39.0 Urinary tract infection, site not specified; R10.13 Epigastric pain; Z79.82 Long term (current) use of aspirin
CPT/HCPCS: 74177; 80053; 81001; 82150; 83690; 84484; 85025; 85610; 85730; 87040; 93005; 96374; 96375; 99285; J0360; J0696; J1885; J2405; J2765; J7030; Q9967

== ENCOUNTER 2017-11-13 11:41 | Day surgery (SDC) | END 2017-11-13 14:51 | disposition home or self-care (01) ==

== ENCOUNTER 2017-11-15 03:25 | Inpatient (IN) | END 2017-11-20 19:10 | disposition home or self-care (01) | DRG 872 ==

== ENCOUNTER 2017-11-21 18:08 | Inpatient (IN) | END 2017-11-24 20:04 | disposition home or self-care (01) | DRG 379 ==

== ENCOUNTER 2018-04-30 08:39 | Day surgery (SDC) | END 2018-04-30 11:26 | disposition home or self-care (01) ==

== ENCOUNTER 2018-08-21 09:29 | Emergency (ER) | END 2018-08-21 16:00 | disposition home or self-care (01) ==

== ENCOUNTER 2018-08-31 09:59 | Emergency (ER) | payer MEDICARE, OTHER ==
[~2018-08-31] VITALS: Ht 167.6 cm; Wt 100.0 kg
[~2018-08-31 09:59] MED LIST changes: +AMLO-145 PO; -ASPI-664 PO; +BUPR150T6 PO; -BUPR75TA9 PO; +CEPH-443 PO; -CYAN500T46 PO; -DOXY25TA33 PO; -FER325 PO; -HYD25 PO; +HYDR-4011 PO; -HYDR-906 PO; -ISON300T72 PO; +LOSA1TAB25 PO; +METO-336 PO; +METO5TAB58 PO; +MONT10TA21 PO; -MONT10TA24 PO; -MORINGA PO; -NEBI5TAB9 PO; -ONDA4TAB14 PO; +THEO400T2 PO; -TRAM50TA2 PO; -VALS160T20 PO
[2018-08-31 10:05] VITALS: BP 123/76; PULSE 59; RESP 20; Ht 167.6 cm; Wt 100.0 kg
--- NOTE | 2018-08-31 10:32 | ERD ---
ER Documentation Chief Complaint Chief Complaint Patient here for suture removal HPI 72-year-old female, presents the emergency department for stitches removal, placed on 08/21/18 on the chin after a ground-level fall. The patient refers feeling better, pain control, no active bleeding. ROS All systems reviewed and are negative except as per history of present illness. Medications Home Meds Active Scripts Amlodipine Besylate* (Amlodipine Besylate*) 5 Mg Tablet, 5 MG PO DAILY for 30 Days, #30 TAB 4 Refills Prov:LUCA RÍOS MD 08/25/18 Metoprolol Succinate* (Toprol XL*) 100 Mg Tab.sr.24h, 50 MG PO BID for 30 Days, #30 TAB 4 Refills 1/2 tablet twice daily Prov:LUCA RÍOS MD 08/25/18 Cephalexin* (Keflex*) 500 Mg Capsule, 500 MG PO QID for 7 Days, #7 CAP Prov:ARMANI AVILA PA-C 08/21/18 Hydrocodone/Acetaminophen ([place] 5-325 Tablet) 1 Each Tablet, 1 TAB PO Q6H PRN for PAIN, #7 TAB Prov:ARMANI AVILA PA-C 08/21/18 Reported Medications Bupropion Hcl* (Bupropion XL*) 150 Mg Tab.er.24h, 150 MG PO DAILY 08/24/18 Losartan-Hydrochlorothiazide (Losartan-HCTZ) 100-25 Mg Tab, 1 TAB PO DAILY 08/24/18 Theophylline Anhydrous* (Theophylline* ER) 400 Mg Tablet.sa, 400 MG PO DAILY, TAB.SA 08/24/18 Levothyroxine Sodium* (Levothyroxine Sodium*) 75 Mcg Tablet, 75 MCG PO BEFORE BREAKFAST, #30 TAB 11/14/17 Atorvastatin Calcium (Atorvastatin Calcium) 10 Mg Tablet, 10 MG PO QHS, #30 TAB 11/14/17 Docusate Sodium* (Colace*) 250 Mg Capsule, 250 MG PO BID, #60 CAP 11/14/17 Omeprazole* (Omeprazole*) 40 Mg Capsule.dr, 40 MG PO DAILY, #30 CAP 11/14/17 Duloxetine Hcl* (Duloxetine Hcl*) 60 Mg Capsule.dr, 60 MG PO DAILY, #30 CAP 11/14/17 Montelukast Sodium* (Singulair*) 10 Mg Tablet, 10 MG PO DAILY, #30 TAB 11/13/17 Metoclopramide* (Reglan*) 5 Mg Tablet, 5 MG PO QHS, TAB 11/13/17 Discontinued Reported Medications Valsartan-Hydrochlorothiazide (Valsartan-HCTZ) 320-12.5 Mg Tablet, 1 TAB PO DAILY, #30 TAB 11/14/17 [Theophylline] No Conflict Check 04/30/18 Discontinued Scripts Naproxen* (Naprosyn*) 500 Mg Tablet, 500 MG PO BID PRN for PAIN AND/OR INFLAMMATION, #30 TAB Prov:ARMANI AVILA PA-C 08/21/18 Allergies Allergies: Coded Allergies: No Known Allergy (Unverified , 08/24/18) PMhx/Soc History of Surgery: Yes (CHOLECYSTECTOMY,LAP BAND,RT TOTAL KNEE REPLACEMENT,KAVON FUNDOPLICATION.) Anesthesia Reaction: No Hx Neurological Disorder: No Hx Respiratory Disorders: Yes (ASTHMA,COPD,TUBERCOLOSIS) Hx Cardiac Disorders: Yes (HTN) Hx Miscellaneous Medical Probl: Yes (pls see EMR) Hx Alcohol Use: No Hx Substance Use: Yes Hx Tobacco Use: No Physical Exam Vitals Vital Signs Date Temp Pulse Resp B/P (MAP) Pulse Ox O2 O2 Flow FiO2 Time Delivery Rate 08/31/18 98.2 59 20 123/76 100 10:05 (92) Physical Exam Const: No acute distress Head: Atraumatic Eyes: Normal Conjunctiva ENT: Normal External Ears, Nose and Mouth. Neck: Full range of motion. No meningismus. Resp: Clear to auscultation bilaterally Cardio: Regular rate and rhythm, no murmurs Abd: Soft, non tender, non distended. Normal bowel sounds Skin: 2 cm linear laceration on the chin, stitches in place, wound clean, dry and intact. Back: No midline or flank tenderness Ext: No cyanosis, or edema Neur: Awake and alert Psych: Normal Mood and Affect Procedures/MDM Status post laceration repair 7 days ago. Adequate pain control, no fever, no chills, good compliance with medications no side effects. The patient was evaluated for infection and neurovascular compromise. The wound was clean and irrigated with normal saline and dressing applied. Patient is stable, with adequate healing process, okay to discharge home, stitches removed without complication. The patient was instructed to follow up with the primary care provider in the next 48h. If symptoms persist, worsen or new symptoms develop, then patient should return to the ED immediately. Instructions explained and given directly by me to the patient with acknowledgment and demonstrated understanding. Disclaimer: Inadvertent spelling and grammatical errors are likely due to EHR/dictation software use and do not reflect on the overall quality of patient care. Also, please note that the electronic time recorded on this note does not necessarily reflect the actual time of the patient encounter. Departure Diagnosis: Primary Impression: Encounter for removal of sutures Condition: Stable Additional Instructions: Muchas catherine por [facility] para young servicio. Esperamos que en young visita a la miguel a de emergencia young problema medico haya sido solucionado y que se sienta mucho mejor. Para estar seguros que young mejoria sigue en proceso, le pedimos el favor de hacer dane rach de seguimiento medico con young doctor primario en los proximos 2-4 rivera. Lleve con usted estos documentos y las medicinas recetadas. Si lesia sintomas empeoran, NO SE ESPERE, por favor regrese a miguel a de emergencia INMEDIATAMENTE. En elizabet que usted no tenga un mdico de atencin primaria: Llame al mdico o clnica comunitaria de referencia que aparece abajo debbi las horas de consultorio para hacer dane rach para que le vean. CLINICAS: [facility] [phone] [facility] [phone] [facility] [phone] [facility] [phone] [place] [phone] [facility]. [phone] JENNIFER GALLEGOS MD Aug 31, 2018 10:32
== END 2018-08-31 11:02 | disposition home or self-care (01) ==
LOC: FTE 09:59
DX: Z48.02 Encounter for removal of sutures (principal); J45.909 Unspecified asthma, uncomplicated; I10 Essential (primary) hypertension; J44.9 Chronic obstructive pulmonary disease, unspecified; Z96.653 Presence of artificial knee joint, bilateral
CPT/HCPCS: 99281

== ENCOUNTER 2018-09-24 07:23 | Day surgery (SDC) | payer MEDICARE, OTHER ==
[~2018-09-24] VITALS: Ht 160 cm; Wt 85.6 kg
[2018-09-24 08:14] VITALS: Ht 160 cm; Wt 85.6 kg
[2018-09-24] MEDS ORDERED: PROBIOTICS (08:20)
[2018-09-24] MEDS ORDERED: NEBULIZER (08:20)
[2018-09-24] MEDS ORDERED: ASA 81 (08:20)
[2018-09-24] MEDS ORDERED: ZYFLAMEND (08:20)
[2018-09-24] MEDS ORDERED: DOXYLAMINE SUCCINATE (08:20)
[2018-09-24] MEDS ORDERED: ALBUTEROL (08:20)
[2018-09-24] MEDS ORDERED: MORINGA (08:20)
[2018-09-24] MEDS ORDERED: VITAMIN B12 (08:20)
[2018-09-24] MEDS ORDERED: FERROUS SULFATE (08:20)
--- NOTE | 2018-09-24 08:30 | PREAC ---
Date/Time of Note Date/Time of Note DATE: 09/24/18 TIME: 08:28 Anesthesia Eval and Record Evaluation Time Pre-Procedure Interview DATE: 09/24/18 TIME: 08:28 Age 72 Sex female NPO: 8 hrs Preoperative diagnosis GERD Planned procedure EGD Past Medical History Past Medical History: Includes Cardio: HTN, Dyslipidemia Pulm: COPD, Asthma Musculoskeletal: Osteoarthritis GI: Obesity Heme: Anemia Psych: Anxiety Surgery & Anesthesia Issues No known issue Meds Anticoagulation: No Beta Belkis within 24 hr: Yes Reason Beta Belkis not given: Bradycarida, Hypotension Active Scripts Amlodipine Besylate* (Amlodipine Besylate*) 5 Mg Tablet, 5 MG PO DAILY for 30 Days, #30 TAB 4 Refills Prov:LUCA RÍOS MD 08/25/18 Metoprolol Succinate* (Toprol XL*) 100 Mg Tab.sr.24h, 50 MG PO BID for 30 Days, #30 TAB 4 Refills 1/2 tablet twice daily Prov:LUCA RÍOS MD 08/25/18 Hydrocodone/Acetaminophen ([place] 5-325 Tablet) 1 Each Tablet, 1 TAB PO Q6H PRN for PAIN, #7 TAB Prov:ARMANI AVILA PA-C 08/21/18 Reported Medications [Doxylamine Succinate] No Conflict Check 09/24/18 [Zyflamend] No Conflict Check 09/24/18 [Vitamin B12] No Conflict Check 09/24/18 [Probiotics] No Conflict Check 09/24/18 [Moringa] No Conflict Check 09/24/18 [Ferrous Sulfate] No Conflict Check 09/24/18 [Asa 81] No Conflict Check 09/24/18 [Nebulizer] No Conflict Check 09/24/18 [Albuterol ] No Conflict Check 09/24/18 Bupropion Hcl* (Bupropion XL*) 150 Mg Tab.er.24h, 150 MG PO DAILY 08/24/18 Theophylline Anhydrous* (Theophylline* ER) 400 Mg Tablet.sa, 400 MG PO DAILY, TAB.SA 08/24/18 Levothyroxine Sodium* (Levothyroxine Sodium*) 75 Mcg Tablet, 75 MCG PO BEFORE BREAKFAST, #30 TAB 11/14/17 Atorvastatin Calcium (Atorvastatin Calcium) 10 Mg Tablet, 10 MG PO QHS, #30 TAB 11/14/17 Docusate Sodium* (Colace*) 250 Mg Capsule, 250 MG PO BID, #60 CAP 11/14/17 Omeprazole* (Omeprazole*) 40 Mg Capsule.dr, 40 MG PO DAILY, #30 CAP 11/14/17 Duloxetine Hcl* (Duloxetine Hcl*) 60 Mg Capsule.dr, 60 MG PO DAILY, #30 CAP 11/14/17 Montelukast Sodium* (Singulair*) 10 Mg Tablet, 10 MG PO DAILY, #30 TAB 11/13/17 Metoclopramide* (Reglan*) 5 Mg Tablet, 5 MG PO QHS, TAB 11/13/17 Discontinued Reported Medications Losartan-Hydrochlorothiazide (Losartan-HCTZ) 100-25 Mg Tab, 1 TAB PO DAILY 08/24/18 Discontinued Scripts Cephalexin* (Keflex*) 500 Mg Capsule, 500 MG PO QID for 7 Days, #7 CAP Prov:ARMANI AVILA PA-C 08/21/18 Meds reviewed: Yes Allergies Coded Allergies: No Known Allergy (Unverified , 09/24/18) Allergies Reviewed: Yes Labs/Studies Labs Reviewed: Reviewed by anesthesiologist test: N/A Pre-procedure Exam Airway: Adequate mouth opening, Adequate thyromental dist Mallampati: Mallampati II Teeth: Normal Lung: Normal Heart: Normal ASA Physical Status ASA physical status: 3 Emergency: None Planned Anesthetic General/MAC: MAC Planned Pain Management Parenteral pain med Pre-operative Attestations Prior to commencing anesthesia and surgery, the patient was re-evaluated, there was verification of: *The patient's identity *The results of appropriate recent lab work and preoperative vital signs *The above evaluation not changing prior to induction *Anesthetic plan, risk benefits, alternative and complications discussed with patient/family; questions answered; patient/family understands, accepts and wishes to proceed. Inspector Filters used GARRICK CHINCHILLA MD Sep 24, 2018 08:30
[2018-09-24 08:36] VITALS: BP 144/76; PULSE 73; RESP 20
[2018-09-24] MEDS ORDERED: LIDOCAINE 2% (SDV) 5 ML INJ ONE (08:38)
[2018-09-24] MEDS ORDERED: PROPOFOL 20 ML ONE (08:38)
[2018-09-24] MEDS ORDERED: hydrALAzine 20 MG INJ ONE (08:56)
[2018-09-24] MEDS ORDERED: ONDANSETRON 4 MG INJ IV PRN (09:00)
--- NOTE | 2018-09-24 09:06 | PAC ---
Date/Time of Note Date/Time of Note DATE: 09/24/18 TIME: 09:03 Post-Anesthesia Notes Post-Anesthesia Note Last documented vital signs Vital Signs Date Temp Pulse Resp B/P (MAP) Pulse Ox O2 O2 Flow FiO2 Time Delivery Rate 09/24/18 98.0 73 20 144/76 94 Room Air 08:36 (98) Activity: WNL Respiratory function: WNL Cardiovascular function: WNL Mental status: Baseline Pain reasonably controlled: Yes Hydration appropriate: Yes Nausea/Vomiting absent: Yes Comments BP: 139/81 HR: 78 RR: 15 T: 98 SaO2: 99 GARRICK CHINCHILLA MD Sep 24, 2018 09:06
[2018-09-24 09:23] VITALS: BP 139/79; PULSE 67; RESP 16
== END 2018-09-24 15:13 | disposition home or self-care (01) ==
LOC: GIL 07:23
PROVIDERS: ATTEND Internal Medicine Gastroenterology
DX: K21.0 Gastro-esophageal reflux disease with esophagitis (principal); I10 Essential (primary) hypertension; E78.5 Hyperlipidemia, unspecified; J44.9 Chronic obstructive pulmonary disease, unspecified; E66.9 Obesity, unspecified; Z68.33 Body mass index [BMI] 33.0-33.9, adult
CPT/HCPCS: 43239; 88305; 88312; 88313; J0360